=== PATIENT | male | born 1945 | race Two or more races ===

== ENCOUNTER 2024-06-14 14:14 | Inpatient (IN) | payer MEDICAID, SELFPAY ==
[2024-06-14] VITALS (9 sets, daily range): BP systolic 139–186; BP diastolic 60–81; PULSE 60–79; RESP 16–99; TEMP 36.6–37; O2SAT 96–100; BMI 26.7
--- NOTE | 2024-06-14 | XR_ITS ---
Examinations: MRI Brain without intravenous contrast. MRA brain without intravenous contrast. MRA carotids without intravenous contrast 3-D vascular reconstructions Date and time of exam: June 14, 2024 1712 hrs. Indications: Stroke alert, onset left-sided facial weakness left facial droop difficulty walking today Technique: Multiple axial and sagittal images of the brain have been obtained MRA brain carotid images without contrast obtained, including 3-D postprocessing, vascular maximum intensity projection images Findings: Sellaturc[place] is not enlarged. The optic chiasm and infundibular stalk are not remarkable. Prepontine and interpeduncular cisterns are not enlarged. No localized enlargement of the medulla or shai. Fourth ventricle and cerebellar tonsils normal in position. Subacute hemorrhage is not seen. Fourth ventricle is midline. Mass in the cerebellopontine angle region is not evident. 7th and 8th nerve complexes exhibits symmetry. Globes are symmetrical with no retro-orbital mass. Increased white matter signal prominent Diffusion-weighted images demonstrate tiny embolic type foci restricted diffusion right frontal parietal lobe both occipital lobes Mass-effect upon the ventricular system is not identified. MRA carotid images degraded by patient motion. MRA brain images no large vessel occlusions Impression: Tiny embolic type acute infarcts in the right frontal parietal lobe and both occipital lobes
--- NOTE | 2024-06-14 14:19 | XR_ITS ---
Examination: CT brain head without contrast. 2-D sagittal coronal reconstructions Date and time of exam:June 14, 2024 1427 hours INDICATIONS: Stroke alert, onset left facial droop and left-sided body weakness beginning 2 hours ago CTDI: vol (mGy):49.7 DLP: (mGycm):985 Technique: Multiple CT axial sections of the brain have been obtained, 5 mm slice thickness. Contrast has not been administered. 2-D sagittal, coronal reconstructions have been obtained Low dose protocols were performed. One or more of the following dose reduction techniques were used; automated exposure control, adjustment of the mA and/or KV according to patient size, use of iterative reconstruction technique. Findings: No significant ventricular enlargement. 23 mm infarct left posterior parietal lobe, image 17 which may be acute All the cerebellar infarct Intra-axial or extra-axial hemorrhage density is not seen. No mass effect or midline shift Basal cisterns are not remarkable. Fourth ventricle is midline. Cranial vault intact. Impression: Negative for acute hemorrhage, mass effect or midline shift 23 mm nonhemorrhagic infarct left posterior parietal lobe which may be acute, clinical correlation advised Consider brain MRI MRA without contrast follow-up
--- NOTE | 2024-06-14 14:19 | EKG_ITS ---
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
--- NOTE | 2024-06-14 14:19 | XR_ITS ---
Examination: CTA carotids with intravenous contrast CTA brain, head with intravenous contrast. 2-D sagittal, coronal reconstructions. 3-D reconstructions. Exam date and time: June 14, 2024 1439 hours INDICATIONS: Stroke alert, onset left-sided facial droop left-sided arm weakness beginning 2 hours ago CTDI: vol (mGy) 59.7 DLP: (mGycm) 477 Technique: Multiple CTA axial brain, head carotid images post intravenous contrast injection 75 cc, [id number]. 2-D sagittal, coronal reconstructions. 3-D reconstructions, 3-D post processing including vascular maximum intensity projection images. Low dose protocols were performed. One or more of the following dose reduction techniques were used; automated exposure control, adjustment of the mA and/or KV according to patient size, use of iterative reconstruction technique. Findings: Significant calcification both carotid bifurcations 10 to 30% stenosis right carotid bifurcation origin right internal carotid artery 40-60% stenosis left carotid bifurcation origin left internal carotid artery Atretic right vertebral artery No cerebral large vessel occlusions or thrombus IMPRESSION: 10 -30% stenosis right carotid bifurcation origin right internal carotid artery 40-60% stenosis left carotid bifurcation origin left internal carotid artery Very atretic right vertebral artery, recommend carotid Doppler vertebral sonography follow-up to exclude retrograde flow in the right vertebral artery No cerebral large vessel occlusions or thrombus
--- NOTE | 2024-06-14 14:20 | PD.EDADULT ---
ED General RME/HPI General Chief complaint: Neuro Symptoms/Deficit Stated complaint: left facial droop, left arm numb Time Seen by Provider: 06/14/24 14:18 Arrival date/time: 06/14/24 14:14 CC: Left-sided facial droop left-sided upper extremity weakness HPI onset patient states 2 hours ago, family member state last seen normal was 3 to 4 hours ago. Patient is awake alert oriented [place]araguan-speaking only denies any physical pain including chest pain no shortness of breath or difficulty breathing. Family remembers report no prior history of stroke. Second family member arrived at 1530 stating that the patient has had several falls with generalized balance and weakness issues over the past month. Related Data Previous Rx's ?Medication ?Instructions ?Recorded ondansetron 4 mg disintegrating 4 mg PO Q8H PRN nausea and 05/03/23 tablet vomiting #10 tabs tramadol 50 mg tablet 25 mg (1/2 x 50 mg) PO BID PRN 05/03/23 pain #10 tabs tramadol 50 mg tablet 25 mg (1/2 x 50 mg) PO BID PRN 05/03/23 pain #10 tabs Allergies Allergy/AdvReac Type Severity Reaction Status Date / Time No Known Allergies Allergy Verified 06/14/24 14:20 Review of Systems Review of Systems Narrative Review of Systems: GEN: No fever, no chills, no weight loss EYES: No discharge, no visual changes, no pain HEENT: No ear pain, no congestion, no sore throat PULM: No shortness of breath, no cough, no congestion CV: No chest pain, no dyspnea on exertion, no palpitations GI: No nausea, no vomiting, no diarrhea, no pain, no constipation : No frequency, no urgency, no dysuria MUSC/SKEL: No joint pain, no back pain SKIN: No rash PSYCH: No hallucinations, no depression HEME/LYMPH: No easy bleeding or bruising tendencies NEURO: + Left face, left upper extremity weakness, no headache Past Medical History Social History SMOKING STATUS: Never smoker ED Exam Narrative Physical exam: [General: Thin, but not emaciated not in any acute distress Head normocephalic HEENT: Eyes pupils are PERRLA EOMs are intact face, left-sided facial droop. No ptosis. Swallow symmetrical phonation is normal all other subsystems of HEENT are within acceptable limits Neck is supple nontender Chest equal chest rise nontender to palpation Respiratory: Clear to auscultation no wheezes crackles or rubs CV: Rate rhythm is regular no murmurs rubs or clicks Abdomen is distended secondary to body habitus soft nontender no masses positive bowel sounds all 4 quadrants Back: No CVA tenderness no spinous process tenderness from cervical spine thoracic and lumbar spine Skin: Intact no petechiae rash induration ulceration or crepitus Extremities: Left upper extremity weakness currently strength 2/5 with building pressure washer. Moving all other extremities against resistance cap refill less than 2 seconds neurosensory intact Neuro: Awake alert oriented x3 Glascow coma 15 no focal deficits] Course Course Course Narrative: Reported to read at [address] Masters states that there is a nonvisualized V3 and V4 segments in the right vertebral artery region. This was reported to Dr. Lori Rutledge for follow-up. Quality Measures none Orders Category Date Time Status Bedside Blood Glucose NOW Care 06/14/24 14:19 Completed Mechanical Project Manager NOW Care 06/14/24 14:19 Active Continuous Pulse Oximetry NOW Care 06/14/24 14:19 Completed EKG (ED ONLY) *Do not use* NOW Care 06/14/24 14:19 Completed Insert IV NOW Care 06/14/24 14:19 Active MRI Screening NOW Care 06/14/24 15:05 Active NIH Stroke Scale now Care 06/14/24 14:19 Completed NPO NOW Care 06/14/24 14:19 Completed Nurse Swallow Screen x1 Care 06/14/24 14:19 Active Consult to Neurology / Tele-Neurology Routine Cons 06/14/24 14:[address] angio stroke protocol Stat Exams 06/14/24 14:[address] stroke protocol Stat Exams 06/14/24 14:19 Completed EKG (ED Only) Stat Exams 06/14/24 14:19 Draft CBC Stat Lab 06/14/24 14:26 Completed Comprehensive Metabolic Panel Stat Lab 06/14/24 14:26 Completed Drug Screen,Urine Stat Lab 06/14/24 18:50 Completed HCG Titer if Positive Stat Lab 06/14/24 14:26 Completed Magnesium Stat Lab 06/14/24 14:26 Completed Partial Thromboplastin Time Stat Lab 06/14/24 14:26 Completed Prothrombin Time with INR Stat Lab 06/14/24 14:26 Completed Troponin I Stat Lab 06/14/24 14:26 Completed Urinalysis Stat Lab 06/14/24 18:50 Completed Urine Culture Stat Lab 06/14/24 18:50 Received Aspirin Med 06/14/24 15:04 Discontinued 325 mg PO X1 ONE Ondansetron Inj [Zofran Inj] Med 06/14/24 14:19 Active 4 mg IV Q4HR PRN Oxygen Delivery NOW RT 06/14/24 14:19 Active Vital Signs Vital signs: Vital Signs Temperature 98.0 F 06/14/24 14:40 Pulse Rate 74 06/14/24 14:40 Respiratory Rate 18 06/14/24 14:40 Blood Pressure 139/62 H 06/14/24 14:40 Pulse Oximetry (%) 98 06/14/24 14:40 Oxygen Delivery Method Room Air 06/14/24 14:40 [facility] Patient data External records reviewed:: [facility] previous records Clinical information provided by:: patient and family Social determinants that could affect healthcare access:: none Patient has the following chronic illnesses:: None How is presenting disease/condition affected by chronic disease/condition?: uneffected by Evaluation data The following diagnostics were reviewed and interpreted by me:: lab results, radiology exam(s) and EKG tracing(s) Lab and/or radiology exams considered but not ordered:: CBC shows no acute leukocytosis there is not mild anemia 12 and 40 no old labs for comparison, no thrombocytopenia Coags within acceptable limits CMP shows no electrolyte imbalances renal impairment transaminitis or T. bili elevation CT of the head is interpreted by me read by radiology shows a 2023 mm nonhemorrhagic infarct left posterior parietal lobe CTA of the brain as interpreted by radiology shows 10 to 30% distal stenosis of the right carotid bifurcation 4060% stenosis of the left carotid bifurcation also at a very atretic right vertebral artery no LVO's. EKG performed at 1528 shows ventricular rate of 63P interval 159 QRS of 9 3 QTc of 430 this is sinus rhythm occasional PVC. Interpretation Summary: NIH score of 5 Medications Medications considered but not ordered:: None Medication administrations:: Medication Administration History Acetaminophen (Acetaminophen 325 Mg Tablet) 650 mg PO Q6H PRN PRN Reason: Fever >100.3 or pain Stop: 07/14/24 16:35 Atorvastatin Calcium (Atorvastatin Calcium 20 Mg Tablet) 40 mg PO HS VICTORIANO Stop: 07/14/24 20:59 Last Admin: 06/14/24 20:13 Dose: 40 mg Documented By: FC Dextrose (Dextrose 50%-Water Inj 50 Ml Syringe) 25 ml IV Q15MIN PRN PRN Reason: BG 50-70 responsive npo pt Stop: 07/14/24 16:42 Dextrose (Dextrose 50%-Water Inj 50 Ml Syringe) 50 ml IV Q15MIN PRN PRN Reason: BG <50 OR BG <70 & pt unresponsive Stop: 07/14/24 16:42 Glucagon (Glucagon Inj 1 Mg Vial) 1 mg IM Q15MIN PRN PRN Reason: BG <70, and no IV access Insulin Human Lispro (Insulin Lispro (Admelog) 1 Unit/0.01 Ml Unit) 0 unit SC [facility]; Protocol Stop: 07/14/24 17:44 Last Admin: 06/14/24 18:03 Dose: Not Given Documented By: Non-Admin Reason: Contraindicated Labetalol HCl (Labetalol Inj 5 Mg/Ml Vial 20 Ml) 10 mg IVP Q4HR PRN PRN Reason: if SBP>220 or DBP>120 Stop: 07/14/24 17:46 Ondansetron HCl (Ondansetron Inj 2 Mg/Ml Inj 2 Ml) 4 mg IV Q4HR PRN PRN Reason: NAUSEA OR VOMITING Stop: 07/14/24 14:18 Discontinued Medications Aspirin (Aspirin 325 Mg Tablet) 325 mg PO X1 ONE Stop: 06/14/24 15:05 Last Admin: 06/14/24 15:16 Dose: 325 mg Documented By: Aspirin (Aspirin Ec 81 Mg Tabec) 81 mg PO X1 ONE Stop: 06/14/24 18:28 Last Admin: 06/14/24 20:12 Dose: Not Given Documented By: FC Non-Admin Reason: Discontinued Aspirin (Aspirin Ec 81 Mg Tabec) 81 mg PO QDAY [facility] Stop: 07/15/24 08:59 Aspirin (Aspirin Ec 81 Mg Tabec) 81 mg PO QDAY [facility] Stop: 07/15/24 08:59 Sodium Chloride (Ns) 1,000 mls @ 80 mls/hr IV .[id number] [facility] Stop: 06/15/24 06:16 Last Admin: 06/14/24 18:03 Dose: 80 mls/hr Documented By: Insulin Human Lispro (Insulin Lispro (Admelog) 1 Unit/0.01 Ml Unit) 0 unit SC ACHS [facility]; Protocol Stop: 07/14/24 16:59 Last Admin: 06/14/24 18:04 Dose: Not Given Documented By: GM Non-Admin Reason: Discontinued Labetalol HCl (Labetalol Inj 5 Mg/Ml Vial 20 Ml) 10 mg IVP X1 PRN PRN Reason: if SBP>220 or DBP>120 Stop: 07/14/24 17:46 None Consultations Consultation(s) initiated? (list below): No Consultation #1 (Physician, Specialty, Details): Teleneurology Time: 15:04 Consultation #2 (Physician, Specialty, Details): Teleneurologist states there was a question as to when the last normal time was is estimated to be at 10 AM which is approximately 5+ hours ago. This time note tPA secondary to the delayed window. Patient will be put on aspirin and admitted for stroke workup. Diagnosis Differential Diagnosis ED Complaint MDM: Ischemic stroke, intracerebral hemorrhage, hemorrhagic stroke Most likely diagnosis given after review of the tests above:: Ischemic stroke Admission Indicated Admission indicated?: indicated Explain why admission is indicated or not indicated:: Further medical management Admission Request Was there a request for admission?: No Disposition Plan Disposition Plan: Admit Medical Decision Making Differential Diagnosis Differential Diagnosis: Ischemic stroke, intracerebral hemorrhage, hemorrhagic stroke Lab Data 06/14/24 14:26 06/14/24 14:26 Labs: Lab Results 06/14/24 Range/Units 14:26 WBC 7.7 (3.8-10.6) Thou/mm3 RBC 4.70 (4.50-5.90) Miln/mm3 Hgb 12.9 L (13.5-16.0) g/dL Hct 40.7 L (41.0-53.0) % MCV 87 (80-100) fL MCH 27.4 (25.0-35.0) pg MCHC 31.7 (31.0-37.0) g/dl RDW Std Deviation 47.6 H (35.1-43.9) fL Plt Count 213 (140-440) Thou/mm3 Neut % (Auto) 71 (37-80) % Lymph % (Auto) 20 (10-50) % [place] % (Auto) 9 (0-12) % Eos % (Auto) 0 (0-10) % Baso % (Auto) 0 (0-2.5) % Neut # (Auto) 5.5 (1.8-7.7) Thou/mm3 Lymph # (Auto) 1.5 (1.0-4.8) Thou/mm3 [place] # (Auto) 0.7 (0.0-0.8) Thou/mm3 Eos # (Auto) 0.0 (0.0-0.5) Thou/mm3 Baso # (Auto) 0.0 (0.0-0.2) Thou/mm3 Immature Gran # (Auto) 0.01 H (0.00-0.00) Thou/mm3 Absolute Nucleated RBC 0.00 (0.00-0.00) Thou/mm3 Immature Gran % 0 (0-0) % Nucleated RBC % 0 (0) /100 WBC PT 11.3 (9.0-12.2) Seconds INR 1.0 (0.9-1.3) APTT 27.3 (22.0-36.0) Seconds Sodium 138 (136-145) mMol/L Potassium 3.9 (3.4-5.1) mMol/L Chloride 103 (98-107) mMol/L Carbon Dioxide 27.2 (20.0-31.0) mMol/L Anion Gap 8 (7-16) BUN 18 (9-23) mg/dL Creatinine 1.0 (0.6-1.3) mg/dL Estim Creat Clear Calc Not Performed. eGFR > 60 (60 - ) See Note BUN/Creatinine Ratio 18 (12-20) Ratio Glucose 91 (74-106) mg/dL Calculated Osmolality 277 (275-295) Calcium 9.7 (8.3-10.6) mg/dL Corrected Calcium 9.7 (8.5-10.1) mg/dL Magnesium 1.8 (1.6-2.6) mg/dL Total Bilirubin 0.5 (0.3-1.2) mg/dL AST 18 (0-34) U/L ALT 12 (10-49) U/L Alkaline Phosphatase 87 (46-116) U/L Troponin I < 0.020 (0.0-0.045) ng/mL Total Protein 7.6 (5.7-8.2) gm/dL Albumin 4.9 H (3.4-4.8) gm/dL Globulin 2.7 (2.3-3.5) gm/dL Albumin/Globulin Ratio 1.8 (1.2-2.2) HCG (Qual) Negative Discharge Plan Plan Patient Disposition: Other Care w/in Hosp (SDC/CASH) Patient condition on transfer: Stable Problem List Clinical Impression: Cerebrovascular accident PA/SORTER LUMBER STRAIGHTENER Supervising Physician PA/SORTER LUMBER STRAIGHTENER Supervising Physician: Britton Bryant ENP
[2024-06-14 14:38] LABS: Basophils % (Auto) 0 % (0-2.5); Eosinophils % (Auto) 0 % (0-10); Hematocrit 40.7 % (41.0-53.0); Hemoglobin 12.9 g/dL (13.5-16.0); Immature Granulocytes % (Auto) 0 % (0-0); Immature Granulocytes Auto 0.01 Thou/mm3 (0.00-0.00); Lymphocytes # (Auto) 1.5 Thou/mm3 (1.0-4.8); Lymphocytes % (Auto) 20 % (10-50); Mean Corpuscular HGB Conc 31.7 g/dl (31.0-37.0); Mean Corpuscular Hemoglobin 27.4 pg (25.0-35.0); Mean Corpuscular Volume 87 fL (80-100); Monocytes # (Auto) 0.7 Thou/mm3 (0.0-0.8); Monocytes % (Auto) 9 % (0-12); Neutrophils # (Auto) 5.5 Thou/mm3 (1.8-7.7); Neutrophils % (Auto) 71 % (37-80); Nucleated Red Blood Cell % 0 /100 WBC (0); Platelet Count 213 Thou/mm3 (140-440); RDW Standard Deviation 47.6 fL (35.1-43.9); White Blood Count 7.7 Thou/mm3 (3.8-10.6)
[2024-06-14 14:49] LABS: Partial Thromboplastin Time 27.3 Seconds (22.0-36.0); Prothrombin Time 11.3 Seconds (9.0-12.2)
[2024-06-14 14:51] LABS: Alanine Aminotransferase 12 U/L (10-49); Albumin, Serum 4.9 gm/dL (3.4-4.8); Albumin/Globulin Ratio 1.8 (1.2-2.2); Alkaline Phosphatase 87 U/L (46-116); Anion Gap 8 (7-16); Aspartate Amino Transferase 18 U/L (0-34); BUN/Creatinine Ratio 18 Ratio (12-20); Bilirubin,Total 0.5 mg/dL (0.3-1.2); Blood Urea Nitrogen 18 mg/dL (9-23); Calcium 9.7 mg/dL (8.3-10.6); Calcium (Corrected) 9.7 mg/dL (8.5-10.1); Carbon Dioxide 27.2 mMol/L (20.0-31.0); Chloride 103 mMol/L (98-107); Globulin 2.7 gm/dL (2.3-3.5); Glucose 91 mg/dL (74-106); Magnesium 1.8 mg/dL (1.6-2.6); Osmolality,Calculated 277 (275-295); Potassium 3.9 mMol/L (3.4-5.1); Sodium 138 mMol/L (136-145); Total Protein 7.6 gm/dL (5.7-8.2); Troponin I < 0.020 ng/mL (0.0-0.045); eGFR > 60 See Note
[2024-06-14 14:53] LABS: HCG Titer if Positive Negative
--- NOTE | 2024-06-14 15:10 | PC.NURSE ---
Dr. Lee , telenurologist, assessing pt at this time. Per Dr. Lee, pt not a candidate for TNK at this time. It's determined that pt's last known well is at 1000 today & out of the window.
--- NOTE | 2024-06-14 15:10 | PD.TNEURO ---
Tele Neuro Consultation Consultation Date 06/14/24 Most Recent Vital Signs Last Vital Signs Temp 98.0 F 06/14/24 14:40 Pulse 67 06/14/24 14:40 Resp 18 06/14/24 14:40 BP 139/62 H 06/14/24 14:40 Pulse Ox 98 06/14/24 14:40 O2 Del Method Room Air 06/14/24 14:40 Laboratory-Coagulation Panel PT 11.3 Seconds (9.0-12.2) 06/14/24 14:26 INR 1.0 (0.9-1.3) 06/14/24 14:26 APTT 27.3 Seconds (22.0-36.0) 06/14/24 14:26 Consultation Narrative [facility] Tele[facility]urology Consult [facility] Patient Name:???Sam Paz Date of :???1945 Identification Number:??? Date of Service:???06/14/2024 14:18:19 Diagnosis:?I63.89 - Cerebrovascular accident (CVA) due to other mechanism ([facility]) Impression: ?Acute onset of left-sided weakness involving the upper extremity, face and dysarthria, unfortunately last well-known time outside IV thrombolytic window. Head CT shows left parietal infarct which is most likely chronic. CTA does not reveal any large vessel occlusion. No acute stroke intervention. ?Start aspirin 81 mg. Allow permissive hypertension up to a systolic of 220. Complete stroke workup. Our recommendations are outlined below. Recommendations: ? Stroke/Telemetry Floor ? Neuro Checks ? Bedside Swallow Eval ? DVT Prophylaxis ? IV Fluids, Normal Saline ? Head of Bed 30 Degrees ? Euglycemia and Avoid Hyperthermia (PRN Acetaminophen) ? Initiate or continue Aspirin 81 MG daily ? Antihypertensives PRN if Blood pressure is greater than 220/120 or there is a concern for End organ damage/contraindications for permissive HTN. If blood pressure is greater than 220/120 give labetalol PO or IV or Vasotec IV with a goal of 15% reduction in BP during the first 24 hours. Sign Out: ? Discussed with Emergency Department Provider Advanced Imaging:CTA Head and Neck Completed. LVO:No Patient in not a candidate for OLGA Metrics: Last Known Well: 06/14/2024 10:00:00 Dispatch Time: 06/14/2024 14:18:19 Arrival Time: 06/14/2024 14:18:54 Initial Response Time: 06/14/2024 14:19:53Symptoms: Left sided facial droop, left arm. Initial patient interaction: 06/14/2024 14:44:24 NIHSS Assessment Completed: 06/14/2024 14:56:33Patient is not a candidate for Thrombolytic. Thrombolytic Medical Decision: 06/14/2024 15:00:37Patient was not deemed candidate for Thrombolytic because of following reasons: LKW outside 4.5 hr window. . I personally Reviewed the CT Head and it Showed no acute changes Primary Provider Notified of Diagnostic Impression and Management Plan on: 06/14/2024 15:03:40 History of Present Illness:Patient is a 78 year old Male. Patient was brought by private transportation with symptoms of Left sided facial droop, left arm. Patient is a 78-year-old Nepalese-speaking male with a past medical history significant for hypertension, diabetes is being evaluated for concerns of left-sided facial droop/left arm numbness. Son who is at bedside translates for the patient. As per the patient he was eating lunch at 10 AM this morning and he was seemingly normal. 11 AM when he tried to go take a shower he removed his shirt and at that time he noticed that his left arm was feeling numb. He is also saying that his left arm is feeling weaker. Son states that there is some mild left-sided facial droop and the speech is slurred. Son immediately brought him to the hospital and on the car ride he noticed that his father was slurring more more. Patient is not on any blood thinners as per the son. He does not have any bleeding issues as per the son. ? Past Medical History: ?Hypertension ?Diabetes Mellitus ?There is no history of Hyperlipidemia ?There is no history of Coronary Artery Disease Other PMH:? GERD Medications: No Anticoagulant use? No Antiplatelet use Reviewed EMR for current medications Allergies:? Description:?As per chart Social History: Smoking: No Alcohol Use: No Drug Use: No Family History: There is no family history of premature cerebrovascular disease pertinent to this consultation ROS : 14 Points Review of Systems was performed and was negative except mentioned in HPI. Past Surgical History: There Is No Surgical History Contributory To Today?s Visit ? Examination: BP(139/62),?Pulse(65),?Blood Glucose(105) 1A: Level of Consciousness - Alert; keenly responsive?+ 0 1B: Ask Month and Age - Both Questions Right?+ 0 1C: Blink Eyes & Squeeze Hands - Performs Both Tasks?+ 0 2: Test Horizontal Extraocular Movements - Normal?+ 0 3: Test Visual Young - No Visual Loss?+ 0 4: Test Facial Palsy (Use Grimace if Obtunded) - Normal symmetry?+ 0 5A: Test Left Arm Motor Drift - Drift, but doesn't hit bed?+ 1 5B: Test Right Arm Motor Drift - No Drift for 10 Seconds?+ 0 6A: Test Left Leg Motor Drift - Drift, but doesn't hit bed?+ 1 6B: Test Right Leg Motor Drift - Drift, but doesn't hit bed?+ 1 7: Test Limb Ataxia (FNF/Heel-Boland) - No Ataxia?+ 0 8: Test Sensation - Mild-Moderate Loss: Less Sharp/More Dull?+ 1 9: Test Language/Aphasia - Normal; No aphasia?+ 0 10: Test Dysarthria - Mild-Moderate Dysarthria: Slurring but can be understood?+ 1 11: Test Extinction/Inattention - No abnormality?+ 0 NIHSS Score:?5 Pre-Morbid Modified [place] Scale:3 Points = Moderate disability; requiring some help, but able to walk without assistance Spoke with :?ED Provider This consult was conducted in real time using interactive audio and video technology. Patient was informed of the technology being used for this visit and agreed to proceed. Patient located in hospital and provider located at home/office setting. Patient is being evaluated for possible acute neurologic impairment and high probability of imminent or life-threatening deterioration. I spent total of 45 minutes providing care to this patient, including time for face to face visit via telemedicine, review of medical records, imaging studies and discussion of findings with providers, the patient and/or family. Dr Aidan Lee [facility] For Inpatient follow-up with [facility] physician please call [facility] at . As we are not an outpatient service for any post hospital discharge needs please contact the hospital for assistance. If you have any questions for the [facility] physicians or need to reconsult for clinical or diagnostic changes please contact us via [facility] at . ?
[2024-06-14] MEDS: Aspirin 325 MG TABLET PO (15:16)
--- NOTE | 2024-06-14 16:26 | ESHP_ITS ---
<Statement entered by Laz Juan DO - 06/14/24 21:01> Senior attestation: Patient was examined and case was reviewed with team including attending physician. Note reviewed, I agree with most of its contents and agree with the patient's care. In summary patient is an 78 year old male with history of T2DM, htn, hld, arthritis, and possible PAD with stent placement who presented to the ED with concerns of left arm weakness and left facial droop, was found to have 23 mm non-hemorrhagic infarct on posterior parietal lobe with stenosis of right and left bifurcations of right and left carotid arteries. Patient was evaluated by tele-neurology team, who advised further investigation of possible CVA vs TIA. Patient will be admitted to telemetry for TIA vs CVA workup, will order head/brain MRI, neurology consultation, and echo with bubble study. Will add IV labetalol for systolic BP > 220 or diastolic BP > 120, physical therapy and speech therapy referrals ordered. Will start aspirin, statin, and insulin sliding scale for patient's history of T2DM. Laz Juan DO PGY-3 Documentation for date of: 06/14/24 HPI History of Present Illness Chief complaint: left arm weakness History of present illness: Sam Paz is 78 yr male with PMH of hypercholesterolemia, [id number] type 2 diabetes, hypertension, arthritis, previous stroke over 10 years ago, ?PAD w/stent presented to ED today after experiencing left hand and arm weakness. Patient stated that he was at home when attempting to take a shower and was not not able to turn on the shower or dress himself due to the weakness. Patient lives at home with who had noticed left-sided facial drooping but no altered speech. Patient's niece was at bedside and stated that he has a history of multiple falls. Apparently patient has a shuffling gait and not able to lift up feet properly with frequent tripping with last fall being 2 weeks ago. Some falls have been causing open lacerations and periorbital bruising. Patient endorses episodes of dizziness but denies any headache, dysphagia, altered vision. He is compliant with medication however does not check blood pressure or blood sugars at home regularly. Denies any abdominal discomfort, dysuria, polyphagia. In ED, vitals unremarkable. CBC unremarkable. CMP revealed sodium 138, potassium 3.9, creatinine 1.0, glucose 91. Troponins were negative. EKG had no ischemic changes. Diagnostic imaging: Head CT negative negative for acute hemorrhage, nonhemorrhagic infarct in left parietal lobe may be chronic. CTA head/neck showed 10-30% stenosis of right carotid bifurcation, 40-60% stenosis left carotid artery bifurcation. Very atretic right vertebral artery with no large vessel occlusion. Teleneuro was consulted and patient not candidate for thrombolytics. NIHSS score of 5. Started on aspirin 81 mg. Patient admitted for CVA workup. PMH: as noted above PSH: b/L eye lens replacement (many years ago--can't recall), possible stent in LE FamHx: HTN, HLD, DM, stroke Social: denies smoking or drinking, lives at home with Review of Systems Review of Systems Systems Reviewed: All systems reviewed, normal except as documented Exam Vital Signs Temp Pulse Resp BP Pulse Ox O2 Del Method 98.2 F 76 19 149/81 H 100 Room Air 06/14/24 15:32 06/14/24 15:32 06/14/24 15:32 06/14/24 15:32 06/14/24 15:32 06/14/24 15:32 Narrative Exam General: Alert and oriented x3. No acute distress, cooperative Eyes: Pupils are equal and reactive to light bilaterally HEENT: Atraumatic, normocephalic. No JVD noted. Mucosa moist. Cardiovascular: Normal S1 and S2. Regular rate and rhythm. No pitting edema Respiratory: Lungs are clear to auscultation bilaterally. No wheezing or crackles heard. Abdomen: Soft, nontender, not distended, normal bowel sounds. Skin: Warm to touch, dry, no rashes noted Musculoskeletal: No gross injuries. Able to move all 4 extremities. 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 Psych: Normal affect and mood Results: Labs 06/15/24 04:40 06/15/24 04:40 Labs: Short CBC 06/14/24 Range/Units 14:26 WBC 7.7 (3.8-10.6) Thou/mm3 Hgb 12.9 L (13.5-16.0) g/dL Hct 40.7 L (41.0-53.0) % Plt Count 213 (140-440) Thou/mm3 BMP 06/14/24 14:26 Sodium 138 Potassium 3.9 Chloride 103 Carbon Dioxide 27.2 BUN 18 Creatinine 1.0 Glucose 91 Calcium 9.7 Cardiac Enzymes 06/14/24 Range/Units 14:26 Troponin I < 0.020 (0.0-0.045) ng/mL Liver Function 06/14/24 Range/Units 14:26 Total Bilirubin 0.5 (0.3-1.2) mg/dL AST 18 (0-34) U/L ALT 12 (10-49) U/L Alkaline Phosphatase 87 (46-116) U/L Albumin 4.9 H (3.4-4.8) gm/dL Quality Measures Quality Measures VTE prophylaxis Advance care planning discussed with:: patient Medications Home Medications and Allergies Home Medications ?Medication ?Instructions ?Recorded ?Confirmed ?Type atorvastatin 40 mg tablet 40 mg PO QDAY 06/15/24 06/15/24 History hydrochlorothiazide 12.5 mg tablet 12.5 mg PO QAM 06/15/24 06/15/24 History meloxicam 7.5 mg tablet 7.5 mg PO QDAY 06/15/24 06/15/24 History metformin 850 mg tablet 850 mg PO BID 06/15/24 06/15/24 History metoprolol tartrate 50 mg tablet 50 mg PO QDAY 06/15/24 06/15/24 History Allergies Allergy/AdvReac Type Severity Reaction Status Date / Time No Known Allergies Allergy Verified 06/14/24 14:20 Visit Medications Ondansetron HCl (Ondansetron Inj 2 Mg/Ml Inj 2 Ml) 4 mg IV Q4HR PRN PRN Reason: NAUSEA OR VOMITING Stop: 07/14/24 14:18 Discontinued Medications Aspirin (Aspirin 325 Mg Tablet) 325 mg PO X1 ONE Stop: 06/14/24 15:05 Last Admin: 06/14/24 15:16 Dose: 325 mg Assessment & Plan Plan Sam Paz is 78 yr male with PMH of hypercholesterolemia, hlx-ukkyyxg-jqarsoplv type 2 diabetes, hypertension, arthritis, previous stroke over 10 years ago, ?PAD w/stent presented to ED today after experiencing left hand and arm weakness. Patient stated that he was at home when attempting to take a shower and was not not able to turn on the shower or dress himself due to the weakness. Also has hx of multiple falls. No slurred speech, no neuro focal deficits, noticeable left-sided facial droop and loss of nasolabial fold. Patient admitted for workup of TIA. #TIA Patient presented with left sided upper extremity weakness and left facial droop. No slurred speech, no focal neurodeficits. Teleneuro was consulted. NIHSS score 5, patient not candidate for thrombolytics. Head CT negative negative for acute hemorrhage, nonhemorrhagic infarct in left parietal lobe may be chronic. CTA head/neck showed 10-30% stenosis of right carotid bifurcation, 40-60% stenosis left carotid artery bifurcation. Very atretic right vertebral artery with no large vessel occlusion. ?Dr. Coffman was consulted recommendations pending. ?Start aspirin 81 mg daily ? Carotid Doppler ultrasound pending ? Echo with bubble study pending ? MRI pending ?Physical therapy/speech pathology referral pending ? N.p.o. until patient passes bedside swallow screen ? Head of bed elevation 30 degrees ? Continue permissive hypertension for 24 hours as per neurorecommendations ? 10 mg IV labetalol every 4 hours as needed if BP 220/120 ? Med recs pending--restart atorvastatin 40 mg p.o. daily once passed swallow screen ?Lipid panel pending #Hx HTN #Hx HLD #Hx arthritis -med recs pending #Hx non insulin dependent T2DM On admission initial glucose 91. Last A1c unknown. Patient takes 750mg metformin daily(?) for diabetes at home. 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 Cruz and seniors Dr. Juan/Dr. Thomas. Kelly Sommer, PGY-1 Mr Paz is a gibraltarian speaking 78 year old male with history of T2DM, essential HTN, HLD, osteoarthritis, and possible PAD with stent placement, who presented to the ED with sudden onset left arm and left facial weakness. On work up, he was found to have a 23 mm non-hemorrhagic infarct on posterior parietal lobe on Head CT, and stenosis of right and left bifurcations of right and left carotid arteries on Head CTA. Patient was evaluated by tele-neurology team, who recommended admission for further investigation of possible CVA vs TIA. Brain MRI/MRA was remarkable for acute embolic infarcts and questionable subacute hematoma. A repeat Head CT will be ordered to rule out any hemorrhagic conversion. In house neurologist Dr Coffman is consulted for further evaluation as well. Stroke protocol in place, Dysphagia 2 diet ordered after nurse swallow screen, pending final swallow eval by speech therapist. PT eval ordered. Patient examined and case discussed with the team including attending physician. Note reviewed, I agree with the care plan as documented. - Gergory Thomas MD, PGY 2 Attending Provider Attestation/Addendum I have discussed and was present for the essential components of the history, physical examination, diagnosis, and treatment plan with the resident. I agree with the patient's care as documented by the resident and amended herein by me. Fuentes Cruz DO. Admitted for probable transischemic attack. Neurology consulted. Patient started on aspirin per teleneurology recommendations however held due to concerns of evolving hemorrhagic infarct per preliminary teleneurology read however read from Dr Valadez reading tiny embolic type acute infarct in the right frontal parietal lobe and both occipital lobes. Will repeat CT head in the morning. Usual stroke precautions in place, A1c and lipid panel ordered. Will continue to monitor closely Although this document has been carefully reviewed, there may still be some phonetic and other typographical errors. These errors are purely grammatical due to imperfections in the software program and should not be construed in any way to compromise the substance of the patient's medical care during this visit.
--- NOTE | 2024-06-14 16:40 | ECHO_ITS ---
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 16 - 28 cm?/m? Ascending Aorta Diameter 2.7 cm M-MODE Aortic Root Diameter MM 3.2 cm LA Systolic Diameter MM 4.7 cm LA Ao Ratio MM 1.5 AV Cusp Separation MM 1.4 cm DOPPLER AV Peak Velocity 247.5 cm/s AV Peak Gradient 24.5 mmHg AV Mean Gradient 12.0 mmHg AV Velocity Time Integral 52.0 cm AI Peak Velocity 432.0 cm/s AI Peak Gradient 74.6 mmHg AI Pressure Half Time 378.0 ms LVOT Peak Velocity 116.0 cm/s LVOT Peak Gradient 5.4 mmHg LVOT Velocity Time Integral 24.0 cm LVOT Cardiac Index 2665.3 cm?/min?m? AV Area Cont Eq vti 1.3 cm? AV Area Cont Eq pk 1.3 cm? MV Peak Velocity 133.0 cm/s MV Peak Gradient 7.1 mmHg MV Mean Velocity 63.8 cm/s MV Mean Gradient 2.0 mmHg MV Area PHT 2.5 cm? MR Peak Velocity 521.0 cm/s MR Peak Gradient 108.6 mmHg Mitral E Point Velocity 129.0 cm/s Mitral A Point Velocity 98.0 cm/s Mitral E to A Ratio 1.3 LV E' Lateral Velocity 6.4 cm/s Mitral E to LV E' Lateral Ratio 20.1 LV E' Septal Velocity 4.7 cm/s Mitral E to LV E' Septal Ratio 27.6 TR Peak Velocity 235.0 cm/s TR Peak Gradient 22.1 mmHg FINDINGS Left Ventricle Normal left ventricular size, systolic function with no obvious regional wall motion abnormalities. Mild LVH. The ejection fraction is visually estimated at 50-55%. Right Ventricle The right ventricle is normal in size and systolic function. The estimated right ventricular systoli c pressure, 32mmHg. RAP 10. Left Atrium The left atrium is severely dilated. Right Atrium The right atrium is severely dilated. Atrial Septum The interatrial septum appears normal with no evidence of a shunt. Aorta The aorta is normal by two-dimensional, color flow and Doppler interrogation. Mitral Valve The mitral valve is mildly MAC. There is mild to moderate mitral valve regurgitation. Aortic Valve The aortic valve is trileaflet. Mild stenosis, mean gradient 13mmHg, vmax 2.6m/s There is mild to mo derate aortic valve regurgitation. Tricuspid Valve The tricuspid valve is normal by two-dimensional, color flow and Doppler interrogation. There is mil d tricuspid valve regurgitation. Pulmonic Valve There is no significant pulmonic valve regurgitation. Vessels The pulmonary artery appears normal. The inferior vena cava pulmonary and hepatic veins appear yesenia l. Pericardium The pericardium is normal by two-dimensional imaging. There is no significant pericardial effusion. CONCLUSIONS Negative bubble study. No evidence of PFO or ASD. Normal LV size and function. Mild LVH. Estimated EF 50-55% Normal RV size and function Severe biatrial dilatation Mild MAC. Mild to moderate MR Mild AV stenosis, mean gradient 13mmHg, vmax 2.6m/s. Mild to moderate AI. Mild TR. Mirna Antonio (Electronically Signed) Final Date: 15 June 2024 13:02
--- NOTE | 2024-06-14 17:07 | XR_ITS ---
Examination: Carotid arterial duplex scan, ultrasound. Date and time of exam: June 14, 2024 1851 hrs. Indications: Onset left arm pain beginning 11:00 AM this morning Technique: Multiple sonographic images have been obtained of the carotid arteries and vertebral arteries, B-mode/grayscale imaging and Doppler spectral analysis and color flow Peak systolic and diastolic velocities have been recorded. Systolic diastolic ratios have been calculated. Findings: Right peak systolic velocities: Distal internal carotid artery peak systolic velocity is 0.7 M/sec Proximal internal carotid artery peak systolic velocity is 0.9 M/sec Carotid bifurcation peak systolic velocity is 0.4 M/sec External carotid artery peak systolic velocity is 1.2 M/sec . Left peak systolic velocities: Distal internal carotid artery peak systolic velocity is 0.4 M/sec Proximal internal carotid artery peak systolic velocity is 0.6 M/sec Carotid bifurcation peak systolic velocity is 0.5 M/sec External carotid artery peak systolic velocity is 1.0 M/sec Doppler waveform analysis demonstrates no spectral broadening Impression: Right internal carotid artery demonstrates 0-10% stenosis. Left internal carotid artery demonstrates 0-10% stenosis. Vertebral artery flow is not visualized
[2024-06-14] MEDS: SODIUM CHLORIDE 0.9% 1000 ML 1,000 ML 80 ML IV (18:03)
--- NOTE | 2024-06-14 18:11 | PC.NURSE ---
Patient marla in [facility] quietly, no distress noted, patient's son at bedside, patient denies pain, skin warm dry and pink, call light within reach, son at bedside assisting patient with urinal.
--- NOTE | 2024-06-14 18:49 | PRELIM_ITS ---
ORIGINAL REPORTMRI of the brain without intravenous gadolinium. June 14, 2024 1712 hoursClinical history: CVA workup no priors available, Hx- left-sided weakness, difficulty in walking and left faci al droopComparison: No prior study is available for comparison. Findings:There are tiny foci of restr icted diffusion in the left occipital lobe medially, suggestive of acute lacunar infarcts. There is a lso an evolving subacute hemorrhagic infarct in the right occipital lobe medially demonstrating dobbs ing with mild adjacent mass effect. No evidence of midline shift. There are periventricular and subc ortical white matter T2 and FLAIR hyperintensities, suggestive of chronic small vessel ischemia. Old lacunar infarcts are noted in the right basal ganglia and left cerebellum. There is an old infarct w ith encephalomalacia in the right parietal lobe. The hippocampal complexes are symmetric. The ventric les, basal cisterns and sulci are prominent, suggestive of volume loss. Mildly prominent perivascular spaces are seen in bilateral basal ganglia. Normal intracranial flow voids are noted. The calvarium, pituitary fossa and cervicomedullary junction appear unremarkable. Mucosal thickening is seen in the left maxillary sinus, suggestive of chronic sinus disease. The other visualized paranasal sinuses an d mastoid air cells are clear. The seventh and eighth nerve root complexes are normal.Impression:Tiny foci of restricted diffusion in the left occipital lobe medially, suggestive of acute lacunar infarc ts. Evolving subacute hemorrhagic infarct in the right occipital lobe medially with mild adjacent mas s effect. Old infarcts, volume loss and chronic small vessel ischemic changes.Suggest clinical corre lation, comparison with prior studies, follow up or further evaluation as clinically indicated. Repor t on MRAs to follow. Discussion Details: Results verbally communicated to : Dr. Bryant at 06:35 PM Report Electronically Signed By: Claribel Masters 06/14/2024 6:49:31 PM [EST]ADDENDUM REPORTMR ang iogram of the Brain and NeckFindings:Evaluation is limited due to motion artifact. The aortic arch, o rigin of right brachiocephalic, left common carotid, and left subclavian arteries are excluded from t he field of view. Bilateral common carotid arteries to the extent visualized, carotid bulbs and inter nal and external carotid arteries are patent. The origins of the vertebral arteries are unremarkable. The left vertebral artery is dominant. The right vertebral artery is hypoplastic with nonvisualized V3 and V4 segments. The intracranial internal carotid, anterior cerebral and posterior cerebral arter ies are patent. The A1 segment of the left anterior cerebral artery is hypoplastic, a normal variant. Bilateral posterior communicating arteries are seen. There is no evidence of dissection or aneurysm. Impression:Hypoplastic right vertebral artery with nonvisualized V3 and V4 segments. Otherwise patent head and neck arteries to the extent visualized.Suggest clinical correlation, comparison with prior studies, follow up or further evaluation as clinically indicated. Report Electronically Signed By: Claribel Masters 06/14/2024 7:57:12 PM [EST]
[2024-06-14 19:03] LABS: Collection Type, Urine Clean Catch
[2024-06-14 19:12] LABS: Bilirubin,Urine Negative (Negative); Blood,Urine Negative (Negative); Clarity,Urine Clear (Clear/Hazy); Color,Urine Lt-Yellow (Lt Yel-Yel); Glucose, Urine 4+ (Negative); Ketones,Urine Negative (Negative); Leukocyte Esterase,Urine Negative (Negative); Nitrite,Urine Negative (Negative); PH,Urine 6.5 (5.0-7.0); Protein,Urine Negative (Neg - Trace); RBC,Urine 1 /hpf (0-3); Specific Gravity,Urine 1.036 (1.001-1.035); Squamous Epithelial Cell,Urine < 1 /hpf (0-5); Urobilinogen,Urine Negative mg/dL (0.0-1.0); WBC,Urine < 1 /hpf (0-5)
[2024-06-14 19:13] LABS: Amphetamine/Methamp Scrn,U Negative (Negative); Barbiturate Screen,Urine Negative (Negative); Benzodiazepines Screen,Urine Negative (Negative); Benzoylecgonine Screen, Ur Negative (Negative); Fentanyl Screen,Urine Negative (Negative); Opiate Screen,Urine Negative (Negative); THC Screen,Urine Negative (Negative)
[2024-06-14] MEDS: ATORVASTATIN CALCIUM 20 MG TABLET 40 MG PO (20:13)
--- NOTE | 2024-06-14 20:24 | EVENTNT_ITS ---
Documentation for date of: 06/14/24 Event Note Event Note: Event note regarding radiologic findings for patient's MRI. Initially, tele- radiologist read was the following: Tiny foci of restricted diffusion in the left occipital lobe medially, suggestive of acute lacunar infarcts. Evolving subacute hemorrhagic infarct in the right occipital lobe medially with mild adjacent mass effect. Old infarcts, volume loss and chronic small vessel ischemic changes. However, provider added an addendum with the following: Evaluation is limited due to motion artifact. The aortic arch, origin of right brachiocephalic, left common carotid, and left subclavian arteries are excluded from the field of view. Bilateral common carotid arteries to the extent visualized, carotid bulbs and internal and external carotid arteries are patent. The origins of the vertebral arteries are unremarkable. The left vertebral artery is dominant. The right vertebral artery is hypoplastic with nonvisualized V3 and V4 segments. The intracranial internal carotid, anterior cerebral and posterior cerebral arteries are patent. The A1 segment of the left anterior cerebral artery is hypoplastic, a normal variant. Bilateral posterior communicating arteries are seen. There is no evidence of dissection or aneurysm. Impression: Hypoplastic right vertebral artery with nonvisualized V3 and V4 segments. Otherwise patent head and neck arteries to the extent visualized. In-house radiology read of the MRI read as: Tiny embolic type acute infarcts in the right frontal parietal lobe and both occipital lobes and subacute hemorrhage not seen. I spoke with Dr. Valadez about the conflicting reports along with the new addendum provided by the tele-radiologist; per Dr. Valadez he believes the above is an overread, but suggests that a repeat CT Head w/o contrast be ordered to rule out SAH in the AM. Dr. Cruz, admitting attending, was notified of this conversation. Vineet George, PGY-1
[2024-06-15] VITALS (20 sets, daily range): BP systolic 115–162; BP diastolic 45–100; PULSE 58–145; RESP 16–98; TEMP 36.2–37.1; O2SAT 96–99
--- NOTE | 2024-06-15 05:00 | XR_ITS ---
Examination: CT brain head without contrast. 2-D sagittal coronal reconstructions Date and time of exam:June 15, 2024 0527 hrs. Comparison June 14, 2024 1427 hrs. Indications: History nonhemorrhagic infarct left parietal lobe CTDI: vol (mGy):50 DLP: (mGycm):1000 Technique: Multiple CT axial sections of the brain have been obtained, 5 mm slice thickness. Contrast has not been administered. 2-D sagittal, coronal reconstructions have been obtained Low dose protocols were performed. One or more of the following dose reduction techniques were used; automated exposure control, adjustment of the mA and/or KV according to patient size, use of iterative reconstruction technique. Findings: Axial image 24 demonstrates 10 mm hyperdense area consistent with subtle hemorrhage in the right occipital lobe infarct Ventricles are not enlarged No mass effect upon the ventricular system No ventricular hemorrhage Cranial vault intact Impression: Subtle 10 mm hemorrhage in the right occipital infarct described on the brain MRI June 14, 2024
[2024-06-15 05:19] LABS: Basophils % (Auto) 0 % (0-2.5); Eosinophils % (Auto) 0 % (0-10); Hematocrit 38.2 % (41.0-53.0); Hemoglobin 12.2 g/dL (13.5-16.0); Immature Granulocytes % (Auto) 0 % (0-0); Lymphocytes # (Auto) 0.9 Thou/mm3 (1.0-4.8); Lymphocytes % (Auto) 13 % (10-50); Mean Corpuscular HGB Conc 31.9 g/dl (31.0-37.0); Mean Corpuscular Hemoglobin 27.5 pg (25.0-35.0); Mean Corpuscular Volume 86 fL (80-100); Monocytes # (Auto) 0.4 Thou/mm3 (0.0-0.8); Monocytes % (Auto) 6 % (0-12); Neutrophils # (Auto) 5.6 Thou/mm3 (1.8-7.7); Neutrophils % (Auto) 81 % (37-80); Nucleated Red Blood Cell % 0 /100 WBC (0); Platelet Count 198 Thou/mm3 (140-440); RDW Standard Deviation 47.7 fL (35.1-43.9); Red Blood Count 4.43 Miln/mm3 (4.50-5.90)
[2024-06-15 05:38] LABS: Glucose Estimated Average 134 mg/dL (80-131); Hemoglobin A1C 6.3 % Hgb (4.8-6.0)
--- NOTE | 2024-06-15 06:11 | PRELIM_ITS ---
CT scan of the head without intravenous contrast (axial sections with sagittal and coronal reformats) June 15, 2024 at 0527 hoursClinical history: Rule out subarachnoid hemorrhage. Comparison: CT of the head dated June 14, 2024 and MRI of the brain dated June 14, 2024.Findings:Persistent is o-hyperdense structure in the cortical region of the right occipital lobe measuring 9.4 x1.7cm with m ild surrounding edema, may represent subacute parenchymal hematoma. There is no evidence of new intra cranial hemorrhage. No mass effect or midline shift. There are encephalomalacic changes in bilateral parietal lobes, right occipital lobe and right basal ganglia, consistent with chronic infarcts. Ther e are diffuse periventricular white matter hypodensities, compatible with chronic small vessel ischem ia. There is mild to moderate volume loss. The calvarium is unremarkable. Again seen is nearly comple te opacification of the left maxillary sinus with centrally layering hyperdensities, may represent fu ngal sinusitis. The mastoid air cells and the other visualized paranasal sinuses are clear.Impression :Findings suggestive of subacute intraparenchymal hematoma in the right occipital lobe.No evidence of new intracranial hemorrhage. No mass effect or midline shift.Old infarcts, periventricular chronic s mall vessel ischemia and volume loss.Discussion Details: Results verbally communicated to : Dr. Tg valle at 06:02 AM 06/15/2024 Report Electronically Signed By: Claribel Masters 06/15/2024 6:11:02 AM [ES T]
[2024-06-15 06:12] LABS: Alanine Aminotransferase 9 U/L (10-49); Albumin, Serum 4.3 gm/dL (3.4-4.8); Albumin/Globulin Ratio 1.8 (1.2-2.2); Alkaline Phosphatase 80 U/L (46-116); Anion Gap 10 (7-16); Aspartate Amino Transferase 17 U/L (0-34); BUN/Creatinine Ratio 22 Ratio (12-20); Bilirubin,Total 0.5 mg/dL (0.3-1.2); Blood Urea Nitrogen 20 mg/dL (9-23); Calcium 9.2 mg/dL (8.3-10.6); Calcium (Corrected) 9.2 mg/dL (8.5-10.1); Carbon Dioxide 24.8 mMol/L (20.0-31.0); Cardiac Risk Estimate 2.5 RATIO (4.0-6.7); Chloride 105 mMol/L (98-107); Cholesterol 131 mg/dL (132-200); Creatinine (Component) 0.9 mg/dL (0.6-1.3); Globulin 2.4 gm/dL (2.3-3.5); Glucose 112 mg/dL (74-106); HDL Cholesterol 52 mg/dL (40-60); LDL Cholesterol,Calculated 65 mg/dL (0-130); Magnesium 1.8 mg/dL (1.6-2.6); Osmolality,Calculated 283 (275-295); Phosphorous 3.8 mg/dL (2.4-5.1); Potassium 3.8 mMol/L (3.4-5.1); Sodium 140 mMol/L (136-145); Thyroid Stimulating Hormone 0.33 uIU/mL (0.55-4.78); Total Protein 6.7 gm/dL (5.7-8.2); Triglycerides 72 mg/dL (30-150); eGFR > 60 See Note
--- NOTE | 2024-06-15 06:28 | PC.NURSE ---
Pt awake. family at bedside. Director Drug changes. pt conversing normaly and has no obvious deficit.
--- NOTE | 2024-06-15 07:20 | PC.NURSE ---
REPORT RECEIVED, PATIENT ALERT AND ORIENTED, DENIES COMPLAINT OF PAIN AT TIME OF ASSESSMENT. FAMILY AT BEDSIDE.
[2024-06-15] MEDS: INSULIN LISPRO (AdmeLOG) 1 UNIT/0.01 ML UNIT SC ×2 (07:57→17:36)
--- NOTE | 2024-06-15 09:18 | PCS.ST ---
STOCK MIXER seen pt in the ED. pt A&O X4. Recommend continue current diet of D2/THIN. See report for additional details.
--- NOTE | 2024-06-15 11:06 | PC.NURSE ---
ADMITTING DOCTOR CONTACTED DUE TO PATIENT IN A-FIB. STAT EKG ORDERED, PENDING MEDICATION ORDERS.
[2024-06-15] MEDS: POTASSIUM CHLORIDE 20 mEq TABCR 40 MEQ PO (11:39)
[2024-06-15] MEDS: AMIODARONE 150 MG IVPB 150 MG/100 ML BAG 600 MG IV (11:47)
[2024-06-15] MEDS: AMIODARONE 360 MG IVPB 360 MG/200 ML BAG 33.333 MG IV (12:01)
[2024-06-15] MEDS: DILTIAZEM INJ 5 MG/ML VIAL 5 ML 20 MG IV (12:17)
[2024-06-15] MEDS: Magnesium Sulfate 2 GM Ivpb 2 GM/50 ML BAG IV (12:20)
--- NOTE | 2024-06-15 14:27 | ESCONSULT_ITS ---
<Statement entered by Lizett Wilson MD - 06/16/24 19:17> The patient personally examined by me in the emergency room as well as upstairs patient's admit the hospital multiple problems including A-fib RVR as a question of bleeding recommend to continue present medications A-fib appears to be back in normal sinus rhythm now anticoagulation with left ear neurologist if there is no bleeding contraindication should be treated with anticoagulation for now has been held because of question of intracranial bleeding. Agree with the treatment plan recommendation as documented by Dr. Ramos PGY2 HPI Data of Consult Requesting Physician: Aureliano Cruz DO Admitting Provider: Aureliano Cruz DO Attending Provider: Aureliano Cruz DO Primary Care Provider: Physician No Primary/Family Consult Narrative History of present illness: 78 years old male patient with significant medical history for, NIDDM2, HLD, HTN and previous history of stroke (10 years ago), was admitted for left side weakness and left side facial droop. At baseline patient has shuffling gait which has caused multiple falls. Patient also endorsing intermittent vision changes, dysphagia and dizziness. He denied chest pain/pressure, fever, chills, NVD or other associated symptoms. Admission vitals were unremarkable, labs showed Na 138, K 3.9, glucose 91, negative trops. EKG was unremarkable. Head CT indicated 23 mm nonhemorrhagic infarct left posterior parietal lobe which may be acute nonhemorrhagic. CTA head/neck showed 10-30% stenosis of right carotid bifurcation, 40-60% stenosis left carotid artery bifurcation. Very atretic right vertebral artery with no large vessel occlusion. Repeat head CT reading indicated: Subtle 10 mm hemorrhage in the right occipital infarct described on the brain. Carotid Doppler was negative. NIHSS score was averaged to be 5 per [employer]. Patient was admitted for further CVA vs TIA workup. In morning, patient was found to have atrial fibrillation with RVR rate in the 130?s. Cardiology was thus consulted. Medical Hx: HTN, HLD, DM2, previous stroke Medications: atorvastatin 40 mg, HCTZ 12.5 mg, metformin 850 mg, metoprolol tartrate 50 mg Surgical Hx: b/l eye surgery Social Hx: denied? smoking, denied drinking alcohol or using other illicit drugs, lives with Allergies: NKDA Code Status: Full Code 06/15/24: Administer diltiazam 20 mg x1 IVP, load with amiodarone, start amiodarone ggt. Given the head imaging and possibility of hemorrhage, we can not start patient on anticoagulation. Decision to start depends on neurologist review of head CT and or MRI. Echocardiogram indicated: Negative bubble study. No evidence of PFO or ASD. Normal LV size and function. Mild LVH. Estimated EF 50-55%. Normal RV size and function. Severe biatrial dilatation. Mild MAC. Mild to moderate MR. Mild AV stenosis, mean gradient 13mmHg, vmax 2.6m/s. Mild to moderate AI. Mild TR. cc:: cc: Aureliano Cruz DO Review of Systems Review of Systems Systems Reviewed: All systems reviewed, normal except as documented Exam Vital Signs Temp Pulse Resp BP Pulse Ox O2 Del Method 98.8 F 141 H 21 H 149/100 H 97 Room Air 06/15/24 14:04 06/15/24 14:04 06/15/24 14:04 06/15/24 14:04 06/15/24 14:04 06/15/24 14:04 Narrative Exam Constitutional: well-developed, well-nourished, in no acute distress, lying in bed HEENT: NCAT, EOMI, reactive round pupils b/l, patent nares b/l, moist mucous membranes Lung: CTAB, no wheezing, no rhonchi Heart: Regular S1S2, no murmurs, gallops, or rubs Abdomen: Soft, non-distended, non-tender, bowel sounds present throughout Extremities: No cyanosis, clubbing, or edema, LE pulses present b/l Neurologic: No focal sensory deficit, decreased left upper aoc 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 operations staff officer strength, left side nasolabial fold asymmetry, AOx3, appropriate affect Skin: Warm, dry, no lesions or rashes noted Results Labs 06/15/24 04:40 06/15/24 04:40 Labs: Short CBC 06/14/24 06/15/24 Range/Units 14:26 04:40 WBC 7.7 7.0 (3.8-10.6) Thou/mm3 Hgb 12.9 L 12.2 L (13.5-16.0) g/dL Hct 40.7 L 38.2 L (41.0-53.0) % Plt Count 213 198 (140-440) Thou/mm3 BMP 06/14/24 06/15/24 14:26 04:40 Sodium 138 140 Potassium 3.9 3.8 Chloride 103 105 Carbon Dioxide 27.2 24.8 BUN 18 20 Creatinine 1.0 0.9 Glucose 91 112 H Calcium 9.7 9.2 Cardiac Enzymes 06/14/24 Range/Units 14:26 Troponin I < 0.020 (0.0-0.045) ng/mL Liver Function 06/14/24 06/15/24 Range/Units 14:26 04:40 Total Bilirubin 0.5 0.5 (0.3-1.2) mg/dL AST 18 17 (0-34) U/L ALT 12 9 L (10-49) U/L Alkaline Phosphatase 87 80 (46-116) U/L Albumin 4.9 H 4.3 D (3.4-4.8) gm/dL Urine 06/14/24 Range/Units 18:50 Urine Color Lt-Yellow (Lt Yel-Yel) Urine Clarity Clear (Clear/Hazy) Urine pH 6.5 (5.0-7.0) Ur Specific [place] 1.036 H (1.001-1.035) Urine Protein Negative (Neg - Trace) Urine Glucose (UA) 4+ A (Negative) Quality Measures Quality Measures none Advance care planning discussed with:: other Medications Home Medications and Allergies Home Medications ?Medication ?Instructions ?Recorded ?Confirmed ?Type atorvastatin 40 mg tablet 40 mg PO QDAY 06/15/24 06/15/24 History hydrochlorothiazide 12.5 mg tablet 12.5 mg PO QAM 06/15/24 06/15/24 History meloxicam 7.5 mg tablet 7.5 mg PO QDAY 06/15/24 06/15/24 History metformin 850 mg tablet 850 mg PO BID 06/15/24 06/15/24 History metoprolol tartrate 50 mg tablet 50 mg PO QDAY 06/15/24 06/15/24 History Allergies Allergy/AdvReac Type Severity Reaction Status Date / Time No Known Allergies Allergy Verified 06/14/24 14:20 Visit Medications Acetaminophen (Acetaminophen 325 Mg Tablet) 650 mg PO Q6H PRN PRN Reason: Fever >100.3 or pain Stop: 07/14/24 16:35 Atorvastatin Calcium (Atorvastatin Calcium 20 Mg Tablet) 40 mg PO HS VICTORIANO Stop: 07/14/24 20:59 Last Admin: 06/14/24 20:13 Dose: 40 mg Dextrose (Dextrose 50%-Water Inj 50 Ml Syringe) 25 ml IV Q15MIN PRN PRN Reason: BG 50-70 responsive npo pt Stop: 07/14/24 16:42 Dextrose (Dextrose 50%-Water Inj 50 Ml Syringe) 50 ml IV Q15MIN PRN PRN Reason: BG <50 OR BG <70 & pt unresponsive Stop: 07/14/24 16:42 Glucagon (Glucagon Inj 1 Mg Vial) 1 mg IM Q15MIN PRN PRN Reason: BG <70, and no IV access Amiodarone HCl/Dextrose (Nexterone Ivpb) 360 mg in 200 mls @ 33.333 mls/hr IV .Q6H ONE Stop: 06/15/24 17:28 Last Admin: 06/15/24 12:01 Dose: 33.333 mls/hr Amiodarone HCl/Dextrose (Nexterone Ivpb) 360 mg in 200 mls @ 16.667 mls/hr IV .Q12H [facility] Stop: 06/16/24 17:14 Insulin Glargine (Insulin Glargine (Lantus) 5 Unit/0.05 Ml (Per 5 Units)) 10 unit SC [facility] Stop: 07/15/24 20:59 Insulin Human Lispro (Insulin Lispro (Admelog) 1 Unit/0.01 Ml Unit) 0 unit SC [facility]; Protocol Stop: 07/14/24 17:44 Last Admin: 06/15/24 12:27 Dose: Not Given Labetalol HCl (Labetalol Inj 5 Mg/Ml Vial 20 Ml) 10 mg IVP Q4HR PRN PRN Reason: if SBP>220 or DBP>120 Stop: 07/14/24 17:46 Ondansetron HCl (Ondansetron Inj 2 Mg/Ml Inj 2 Ml) 4 mg IV Q4HR PRN PRN Reason: NAUSEA OR VOMITING Stop: 07/14/24 14:18 Discontinued Medications Aspirin (Aspirin 325 Mg Tablet) 325 mg PO X1 ONE Stop: 06/14/24 15:05 Last Admin: 06/14/24 15:16 Dose: 325 mg Aspirin (Aspirin Ec 81 Mg Tabec) 81 mg PO X1 ONE Stop: 06/14/24 18:28 Last Admin: 06/14/24 20:12 Dose: Not Given Aspirin (Aspirin Ec 81 Mg Tabec) 81 mg PO QDAY [facility] Stop: 07/15/24 08:59 Aspirin (Aspirin Ec 81 Mg Tabec) 81 mg PO QDAY [facility] Stop: 07/15/24 08:59 Diltiazem HCl (Diltiazem Inj 5 Mg/Ml Vial 5 Ml) 20 mg IV X1 ONE Stop: 06/15/24 11:30 Last Admin: 06/15/24 12:17 Dose: 20 mg Sodium Chloride (Ns) 1,000 mls @ 80 mls/hr IV .[id number] [facility] Stop: 06/15/24 06:16 Last Infusion: 06/15/24 07:50 Dose: Infused Magnesium Sulfate (Magnesium Sulfate Ivpb) 2 gm in 50 mls @ 25 mls/hr IV X1 ONE Stop: 06/15/24 13:10 Last Admin: 06/15/24 12:20 Dose: 25 mls/hr Amiodarone HCl/Dextrose (Nexterone Ivpb) 150 mg in 100 mls @ 600 mls/hr IV .Q10M ONE Stop: 06/15/24 11:38 Last Infusion: 06/15/24 12:12 Dose: Infused Insulin Human Lispro (Insulin Lispro (Admelog) 1 Unit/0.01 Ml Unit) 0 unit SC [facility]; Protocol Stop: 07/14/24 16:59 Last Admin: 06/14/24 18:04 Dose: Not Given Labetalol HCl (Labetalol Inj 5 Mg/Ml Vial 20 Ml) 10 mg IVP X1 PRN PRN Reason: if SBP>220 or DBP>120 Stop: 07/14/24 17:46 Potassium Chloride (Potassium Chloride 20 Meq Tabcr) 40 meq PO X1 ONE Stop: 06/15/24 11:12 Last Admin: 06/15/24 11:39 Dose: 40 meq Assessment & Plan Plan 78 years old male patient with significant medical history for, NIDDM2, HLD, HTN and previous history of stroke (10 years ago), was admitted for left side weakness and left side facial droop. Patient admitted for CVA workup, later found to have Afib with RVR. #New onset Atrial fibrllation with RVR Echocardiogram indicated: Negative bubble study. No evidence of PFO or ASD. Normal LV size and function. Mild LVH. Estimated EF 50-55%. Normal RV size and function. Severe biatrial dilatation. Mild MAC. Mild to moderate MR. Mild AV stenosis, mean gradient 13mmHg, vmax 2.6m/s. Mild to moderate AI. Mild TR. [id number] score of 7 HASBLED score of 3 (high risk) Plan: - Given possibility of brain hemhorrage, imagin need to be reviewed by neurologist and decision to start anticoagulation need to be made by them - Load with diltiazem 20 mg x1 IVP - Load with amiodarone - Start amiodarone ggt - Keep K > 4 and Mag > 2 #Hypertension Plan: - Permissive hypertension per neurology - PRN Labetalol for BP > 200/100 #HLD Plan: - Continue Atorvastatin 40 mg Qday #DM2 #CVA vs TIA -Management per primary team This patient care was discussed with attending Dr. Steve Sawyer MD PGY-2 Disclaimer: Minor errors in manager adult may be present since this note was dictated by speech recognition software.
--- NOTE | 2024-06-15 15:40 | ESPR_ITS ---
Documentation for date of: 06/15/24 Subjective Subjective Interval history: Patient was seen and examined at bedside. No acute events overnight. Patient is denying any new onset weakness, chest pain, shortness of breath, palpitations. Continues to complain of residual left-sided weakness and discomfort in left arm. No new focal deficits on physical exam. hot room attendant showed patient to be in new onset atrial fibrillation with RVR heart rate of 138. Repeat EKG showed new onset A-fib with RVR heart rate 138. Repleted 2g Mg and [address] Wilson was consulted--gave IV diltiazem 20 mg x 1 and started amiodarone drip TSH 0.33, follow up with free T4 tomorrow. May start levothyroxine. Negative bubble study. No evidence of PFO or ASD. Review of systems otherwise negative except what is mentioned above. Exam Vital Signs Temp Pulse Resp BP Pulse Ox O2 Del Method 98.8 F 77 16 123/53 L 96 Room Air 06/15/24 14:04 06/15/24 15:11 06/15/24 15:11 06/15/24 15:11 06/15/24 15:11 06/15/24 15:11 Narrative Exam General: Alert and oriented x3. No acute distress, cooperative Eyes: Pupils are equal and reactive to light bilaterally HEENT: Atraumatic, normocephalic. No JVD noted. Mucosa moist. Cardiovascular: Normal S1 and S2. Irregualr RR, tachycardia. No pitting edema Respiratory: Lungs are clear to auscultation bilaterally. No wheezing or crackles heard. Abdomen: Soft, nontender, not distended, normal bowel sounds. Skin: Warm to touch, dry, no rashes noted Musculoskeletal: No gross injuries. Able to move all 4 extremities. Neuro: No focal neuro deficits, 4/5 left side oracle etl developer strength, loss of left side nasolabial fold, difficulty in smiling, normal eyebrow raise. Psych: Normal affect and mood Objective Labs 06/16/24 05:18 06/16/24 05:18 Labs: Laboratory Results - last 24 hr 06/14/24 06/15/24 18:50 04:40 WBC 7.0 RBC 4.43 L Hgb 12.2 L Hct 38.2 L MCV 86 MCH 27.5 MCHC 31.9 RDW Std Deviation 47.7 H Plt Count 198 Neut % (Auto) 81 H Lymph % (Auto) 13 [place] % (Auto) 6 Eos % (Auto) 0 Baso % (Auto) 0 Neut # (Auto) 5.6 Lymph # (Auto) 0.9 L [place] # (Auto) 0.4 Eos # (Auto) 0.0 Baso # (Auto) 0.0 Immature Gran # (Auto) 0.00 Absolute Nucleated RBC 0.00 Immature Gran % 0 Nucleated RBC % 0 Sodium 140 Potassium 3.8 Chloride 105 Carbon Dioxide 24.8 Anion Gap 10 BUN 20 Creatinine 0.9 Estim Creat Clear Calc 57.0 L eGFR > 60 BUN/Creatinine Ratio 22 H Glucose [address] Glu mg/dL 134 H Hemoglobin A1c 6.3 H Calculated Osmolality 283 Calcium 9.2 Corrected Calcium 9.2 Phosphorus 3.8 Magnesium 1.8 Total Bilirubin 0.5 AST 17 ALT 9 L Alkaline Phosphatase 80 Total Protein 6.7 Albumin 4.3 D Globulin 2.4 Albumin/Globulin Ratio 1.8 Triglycerides 72 Cholesterol 131 L LDL Cholesterol, Calc 65 HDL Cholesterol 52 Cholesterol/HDL Ratio 2.5 L TSH 0.33 L Ur Collection Type Clean Catch Urine Color Lt-Yellow Urine Clarity Clear Urine pH 6.5 Ur Specific [place] 1.036 H Urine Protein Negative Urine Glucose (UA) 4+ A Urine Ketones Negative Urine Blood Negative Urine Nitrite Negative Urine Bilirubin Negative Urine Urobilinogen (Auto) Negative Ur Leukocyte Esterase Negative Urine RBC 1 Urine WBC < 1 Ur Squamous Epith Cells < 1 Urine Bacteria None Urine Opiates Screen Negative Urine Fentanyl Screen Negative Ur Barbiturates Screen Negative U Amphetamin/Meth Scrn Negative U Benzodiazepines Scrn Negative U Cocaine Metab Screen Negative U Marijuana (THC) Screen Negative Quality Measures Quality Measures none Advance care planning discussed with:: patient Assessment & Plan Assessment Current Active Medications: Generic Name Dose Route Start Last Admin Trade Name Freq PRN Reason Stop Dose Admin Acetaminophen 650 mg 06/14/24 16:36 Acetaminophen 325 Mg Tablet PO 07/14/24 16:35 Q6H PRN Fever >100.3 or pain Atorvastatin Calcium 40 mg 06/14/24 21:00 06/14/24 20:13 Atorvastatin Calcium 20 Mg Tablet PO 07/14/24 20:59 40 mg HS VICTORIANO Administration Dextrose 25 ml 06/14/24 16:43 Dextrose 50%-Water Inj 50 Ml Syringe IV 07/14/24 16:42 Q15MIN PRN BG 50-70 responsive npo pt Dextrose 50 ml 06/14/24 16:43 Dextrose 50%-Water Inj 50 Ml Syringe IV 07/14/24 16:42 Q15MIN PRN BG <50 OR BG <70 & pt unresponsive Glucagon 1 mg 06/14/24 16:43 Glucagon Inj 1 Mg Vial IM Q15MIN PRN BG <70, and no IV access Amiodarone HCl/Dextrose 360 mg in 200 mls @ 33.333 mls/hr 06/15/24 11:29 06/15/24 14:10 Nexterone Ivpb IV 06/15/24 17:28 Infused .Q6H ONE Infusion Amiodarone HCl/Dextrose 360 mg in 200 mls @ 16.667 mls/hr 06/15/24 17:15 Nexterone Ivpb IV 06/16/24 17:14 .Q12H [facility] Insulin Glargine 10 unit 06/15/24 21:00 Insulin Glargine (Lantus) 5 Unit/0.05 Ml (Per 5 Units) SC 07/15/24 20:59 HS [facility] Insulin Human Lispro 0 unit 06/14/24 17:45 06/15/24 12:27 Insulin Lispro (Admelog) 1 Unit/0.01 Ml Unit SC 07/14/24 17:44 Not Given [facility] Protocol Labetalol HCl 10 mg 06/14/24 18:34 Labetalol Inj 5 Mg/Ml Vial 20 Ml IVP 07/14/24 17:46 Q4HR PRN if SBP>220 or DBP>120 Ondansetron HCl 4 mg 06/14/24 14:19 Ondansetron Inj 2 Mg/Ml Inj 2 Ml IV 07/14/24 14:18 Q4HR PRN NAUSEA OR VOMITING Plan Sam Paz is 78 yr male with PMH of hypercholesterolemia, [id number] type 2 diabetes, hypertension, arthritis, previous stroke over 10 years ago, ?PAD w/stent presented to ED today after experiencing left hand and arm weakness. Patient stated that he was at home when attempting to take a shower and was not not able to turn on the shower or dress himself due to the weakness. Also has hx of multiple falls. No slurred speech, no neuro focal deficits, noticeable left-sided facial droop and loss of nasolabial fold. Patient admitted for workup of TIA. #TIA Patient presented with left sided upper extremity weakness and left facial droop. No slurred speech, no focal neurodeficits. Teleneuro was consulted. NIHSS score 5, patient not candidate for thrombolytics. Head CT negative negative for acute hemorrhage, nonhemorrhagic infarct in left parietal lobe may be chronic. CTA head/neck showed 10-30% stenosis of right carotid bifurcation, 40-60% stenosis left carotid artery bifurcation. Very atretic right vertebral artery with no large vessel occlusion. TAG 72, chol 131, LDL 65, HDL 52 ?Dr. Coffman was consulted ?continue aspirin 81 mg daily ? Echo with bubble study negative for PFO ? MRI Tiny embolic type acute infarcts in the right frontal parietal lobe and both occipital lobes ?Physical therapy/speech pathology referral pending ? passed bedside swallow screen ? Head of bed elevation 30 degrees ? 10 mg IV labetalol every 4 hours as needed if BP 220/120 ? atorvastatin 40 mg p.o. daily ?Lipid panel pending #New onset Atrial fibrllation with RVR TSH 0.33. HR 138 on repeat EKG. -Repleted 2g Mg and 40 mEq K. -Cardiology Dr. Wilson was consulted--gave IV diltiazem 20 mg x 1 and started amiodarone drip -free T4 pending -troponins negative -CHADsVASc score 7 (11.2% stroke risk per yr) -patient is at increased risk for stroke and should be started on anticoagulant but not appropriate candidate as of now due to risk of intracranial hemorrhage -HAS-BLED score 3 (high risk of major bleeding) -continue to monitor electolytes keeping potassium >4.0 and Mg >2.0 #Hx HTN #Hx HLD #Hx arthritis -started on amio drip and s/p IV dilt 20 mg x1 -atorvastatin 40 mg daily -hold meloxicam for now #Hx non insulin dependent T2DM On admission initial glucose 91. Last A1c unknown. Patient takes 750mg metformin daily for diabetes at home. TAG 72, chol 131, LDL 65, HDL 52 -Held home medications -Bedside blood glucose checks AC -Insulin lispro sliding scale -Carb consistent low diet -A1c 6.3 from 06/15/24 Health maintenance: Dispo: TIA workup DVT prophylaxis: SCDs CODE STATUS: Full code Diet: dysphagia II, low sodium The patient's management plan was discussed with my attending physician Dr. Urbina and senior Dr. Thomas. Kelly Sommer, PGY-1 L Mr Mr Paz is a [place] citizen speaking 78 year old male with history of T2DM, essential HTN, HLD, osteoarthritis, and possible PAD with stent placement, who presented to the ED with sudden onset left arm and left facial weakness. On work up, he was found to have a 23 mm non-hemorrhagic infarct on posterior parietal lobe on Head CT, and stenosis of right and left bifurcations of right and left carotid arteries on Head CTA. Brain MRI/MRA was remarkable for acute embolic infarcts and questionable subacute hematoma. A repeat Head CT was ordered to rule out any hemorrhagic conversion, which was remarkable only for a 10mm hematoma. In house neurologist Dr Coffman is consulted for further evaluation as well. Stroke protocol in place, Dysphagia 2 diet ordered after nurse swallow screen, PT eval ordered. 06/15: Patient developed new onset AFib wirht RVR, HR 140-150bpm. Cardiology consulted, appreciate recommendations. Gave Diltiazem 20mg IV x1, followed by Amio gtt x3 bags. ECHO with bubble study negative for PFO or ASD, LVEF 50-55%. CHADsVASc = 5 and HASBLED = 4. HOLD OFF on AC for now as high risk of bleeding, Cardio and Neuro on board. Patient examined and case discussed with the team including attending physician. Note reviewed, I agree with the care plan as documented. - Gregory Thomas MD, PGY 2 L Attending Provider Attestation/Addendum I have examined the patient, reviewed labs and imaging findings, discussed the case with the resident(s), and reviewed entered orders. I agree with the plan of care as outlined in this note, with these additional summaries/recommendations: Patient seen at bedside. Patient admitted overnight for strokelike symptoms. CT head showed no acute hemorrhage but did reveal 23 mm nonhemorrhagic infract left posterior parietal lobe. CTA head and neck showed no LVO or thrombus. MRI brain showed tiny embolic acute infractions in right frontal, parietal lobe, and both occipital lobes. Patient diagnosed with acute CVA. Another head CT was obtained which showed 10 mm hemorrhage in right occipital although possible over read. We will continue to hold anticoagulation for now and repeat head CT in AM. If not worsening or resolved then we can likely resume anticoagulation. Continue high intensity statin. In-house neurology following. Patient developed new onset atrial fibrillation with rapid ventricular response. Started on amiodarone gtt. and cardiology consulted. Echocardiogram obtained which revealed negative bubble study and EF of 50 to 55%. We will continue to monitor patient for any change in neurologic status and repeat imaging if needed. Repeat chemistry and hematology panel in AM. Dr. Urbina
--- NOTE | 2024-06-15 16:17 | PC.CC ---
Pt Sam Paz is an 78 yr old, Malay speaking male, admitted to hospitalist services for TIA. ASW met with pt and his Radha Paz [phone] at bedside to complete initial assessment. At time of encounter pts Caryn Paz [phone]. At time of encounter pt is noted to be alert and oriented to person, place and situation. Pt expressed understanding admission orders. Pt able to confirm most information. Pt is from home [address]. In the home pt reports he lives with his and other family members. Pt identifies his son Peter Paz [phone] as surrogate DM. In the home pt uses a cane, but states he feels unsteady with a hx of multiple falls. Pt does require some assist with his ADLs. Pt does not require supplemental O2 in his home. Pt is diabetic and is not on dialysis. Pt states he has a primary provider but is unable to provide name or clinic he is see at. ASW discussed possible recommendation for SNF placement for short term rehab. Both pt and his would like pt to return home. Per pts pt has a lot of family support. If pt declines SNF at time of D/c possible HH referral and PT recommendation for DME.
[2024-06-15] MEDS: AMIODARONE 360 MG IVPB 360 MG/200 ML BAG 16.667 MG IV (17:37)
[2024-06-15] MEDS: ATORVASTATIN CALCIUM 20 MG TABLET 40 MG PO (20:06)
[2024-06-15] MEDS: INSULIN GLARGINE (Lantus) 5 UNIT/0.05 ML (PER 5 UNITS) 10 UNIT SC (20:07)
--- NOTE | 2024-06-15 23:56 | PD.VPROG1 ---
Telemedicine visit statement This visit was conducted with the use of phone was obtained on 06/15/24 at 2356. Documentation for date of: 06/15/24 Subjective Subjective Interval history: Patient is in telemetry. No new symptoms reported. Able to move both upper and lower extremities. No complaints of dizziness, headache or vision symptoms. Virtual exam Vital Signs Temp Pulse Resp BP Pulse Ox O2 Del Method 97.1 F 61 19 139/65 H 96 Room Air 06/15/24 20:00 06/15/24 20:00 06/15/24 20:00 06/15/24 20:00 06/15/24 20:00 06/15/24 20:00 Objective Labs 06/17/24 05:20 06/17/24 05:20 Labs: Laboratory Results - last 24 hr 06/15/24 04:40 WBC 7.0 RBC 4.43 L Hgb 12.2 L Hct 38.2 L MCV 86 MCH 27.5 MCHC 31.9 RDW Std Deviation 47.7 H Plt Count 198 Neut % (Auto) 81 H Lymph % (Auto) 13 [place] % (Auto) 6 Eos % (Auto) 0 Baso % (Auto) 0 Neut # (Auto) 5.6 Lymph # (Auto) 0.9 L [place] # (Auto) 0.4 Eos # (Auto) 0.0 Baso # (Auto) 0.0 Immature Gran # (Auto) 0.00 Absolute Nucleated RBC 0.00 Immature Gran % 0 Nucleated RBC % 0 Sodium 140 Potassium 3.8 Chloride 105 Carbon Dioxide 24.8 Anion Gap 10 BUN 20 Creatinine 0.9 Estim Creat Clear Calc 57.0 L eGFR > 60 BUN/Creatinine Ratio 22 H Glucose [address] Glu mg/dL 134 H Hemoglobin A1c 6.3 H Calculated Osmolality 283 Calcium 9.2 Corrected Calcium 9.2 Phosphorus 3.8 Magnesium 1.8 Total Bilirubin 0.5 AST 17 ALT 9 L Alkaline Phosphatase 80 Total Protein 6.7 Albumin 4.3 D Globulin 2.4 Albumin/Globulin Ratio 1.8 Triglycerides 72 Cholesterol 131 L LDL Cholesterol, Calc 65 HDL Cholesterol 52 Cholesterol/HDL Ratio 2.5 L TSH 0.33 L Assessment & Plan Assessment (1) Cerebrovascular accident: Status: Acute Assessment and plan: No focal neurological deficit noted on exam. As the MRI brain and repeat CT head showed subtle hemorrhagic transformation, will hold off on the antiplatelet/anticoagulant therapy for now until the repeat study in 48 hours to decide about starting NOACs. Continue with the blood pressure control and statin (2) Atrial fibrillation: Status: Acute Assessment and plan: To be started on amiodarone tomorrow, continue with rate control.
[2024-06-16] VITALS (9 sets, daily range): BP systolic 123–168; BP diastolic 53–82; PULSE 58–118; RESP 12–97; TEMP 36.1–36.4; O2SAT 95–99; BMI 28.4
[2024-06-16] MEDS: AMIODARONE 360 MG IVPB 360 MG/200 ML BAG 16.667 MG IV (05:21)
[2024-06-16 06:16] LABS: Basophils # (Auto) 0.1 Thou/mm3 (0.0-0.2); Basophils % (Auto) 1 % (0-2.5); Eosinophils # (Auto) 0.3 Thou/mm3 (0.0-0.5); Eosinophils % (Auto) 3 % (0-10); Hematocrit 35.6 % (41.0-53.0); Hemoglobin 11.6 g/dL (13.5-16.0); Immature Granulocytes % (Auto) 0 % (0-0); Immature Granulocytes Auto 0.03 Thou/mm3 (0.00-0.00); Lymphocytes # (Auto) 1.8 Thou/mm3 (1.0-4.8); Lymphocytes % (Auto) 21 % (10-50); Mean Corpuscular HGB Conc 32.6 g/dl (31.0-37.0); Mean Corpuscular Volume 86 fL (80-100); Monocytes # (Auto) 0.7 Thou/mm3 (0.0-0.8); Monocytes % (Auto) 8 % (0-12); Neutrophils # (Auto) 5.7 Thou/mm3 (1.8-7.7); Neutrophils % (Auto) 67 % (37-80); Nucleated Red Blood Cell % 0 /100 WBC (0); Platelet Count 210 Thou/mm3 (140-440); RDW Standard Deviation 47.4 fL (35.1-43.9); Red Blood Count 4.15 Miln/mm3 (4.50-5.90); White Blood Count 8.5 Thou/mm3 (3.8-10.6)
[2024-06-16 06:58] LABS: Alanine Aminotransferase 11 U/L (10-49); Albumin, Serum 3.8 gm/dL (3.4-4.8); Albumin/Globulin Ratio 1.6 (1.2-2.2); Alkaline Phosphatase 73 U/L (46-116); Anion Gap 9 (7-16); Aspartate Amino Transferase 16 U/L (0-34); BUN/Creatinine Ratio 21 Ratio (12-20); Bilirubin,Total 0.3 mg/dL (0.3-1.2); Blood Urea Nitrogen 17 mg/dL (9-23); Calcium (Corrected) 9.2 mg/dL (8.5-10.1); Carbon Dioxide 23.6 mMol/L (20.0-31.0); Chloride 106 mMol/L (98-107); Creatinine (Component) 0.8 mg/dL (0.6-1.3); Estimated Creatinine Clearance 64.8 mL/min (>60); Free T4 (Free Thyroxine) 1.31 ng/dL (0.89-1.76); Globulin 2.4 gm/dL (2.3-3.5); Glucose 101 mg/dL (74-106); Osmolality,Calculated 279 (275-295); Sodium 139 mMol/L (136-145); Total Protein 6.2 gm/dL (5.7-8.2); eGFR > 60 See Note
--- NOTE | 2024-06-16 07:00 | XR_ITS ---
Examination: CT brain head without contrast. 2-D sagittal coronal reconstructions Date and time of exam:June 16, 2024 at 0756 hrs. Indications: Stroke alert June 14, 2024, subtle hemorrhage in the right occipital lobe at the site of right occipital lobe infarct CTDI: vol (mGy):48.9 DLP: (mGycm):1042 Technique: Multiple CT axial sections of the brain have been obtained, 5 mm slice thickness. Contrast has not been administered. 2-D sagittal, coronal reconstructions have been obtained Low dose protocols were performed. One or more of the following dose reduction techniques were used; automated exposure control, adjustment of the mA and/or KV according to patient size, use of iterative reconstruction technique. Findings: Subtle infarct in the right occipital lobe No change in equivocal minimal hemorrhagic transformation No mass effect or midline shift Basal cisterns are not remarkable. Fourth ventricle is midline. Cranial vault intact. Impression: Subtle infarct in the right occipital lobe No change in equivocal minimal hemorrhagic transformation within this infarct No interval areas of hemorrhage
[2024-06-16 11:40] LABS: Magnesium 1.9 mg/dL (1.6-2.6)
--- NOTE | 2024-06-16 13:58 | ESPR_ITS ---
<Statement entered by Lizett Wilson MD - 06/19/24 10:14> I evaluated the patient along with Dr. Ramos PGY2 resident physician patient is doing better remains in sinus rhythm has had a history of paroxysmal atrial fibrillation with possible TIA or stroke no bleeding started anticoagulation continues to improve does not complain of any cardiovascular symptoms at this time evaluated the patient all essential components are reviewed agree with the treatment plan recommendation as formulated by Dr. Ramos PGY2 Documentation for date of: 06/16/24 Subjective Subjective Interval history: 78 years old male patient with significant medical history for, NIDDM2, HLD, HTN and previous history of stroke (10 years ago), was admitted for left side weakness and left side facial droop. At baseline patient has shuffling gait which has caused multiple falls. Patient also endorsing intermittent vision changes, dysphagia and dizziness. He denied chest pain/pressure, fever, chills, NVD or other associated symptoms. Admission vitals were unremarkable, labs showed Na 138, K 3.9, glucose 91, negative trops. EKG was unremarkable. Head CT indicated 23 mm nonhemorrhagic infarct left posterior parietal lobe which may be acute nonhemorrhagic. CTA head/neck showed 10-30% stenosis of right carotid bifurcation, 40-60% stenosis left carotid artery bifurcation. Very atretic right vertebral artery with no large vessel occlusion. Repeat head CT reading indicated: Subtle 10 mm hemorrhage in the right occipital infarct described on the brain. Carotid Doppler was negative. NIHSS score was averaged to be 5 per [facility]. Patient was admitted for further CVA vs TIA workup. In morning, patient was found to have atrial fibrillation with RVR rate in the 130?s. Cardiology was thus consulted. 06/15/24: Administer diltiazam 20 mg x1 IVP, load with amiodarone, start amiodarone ggt. Given the head imaging and possibility of hemorrhage, we can not start patient on anticoagulation. Decision to start depends on neurologist review of head CT and or MRI. Echocardiogram indicated: Negative bubble study. No evidence of PFO or ASD. Normal LV size and function. Mild LVH. Estimated EF 50-55%. Normal RV size and function. Severe biatrial dilatation. Mild MAC. Mild to moderate MR. Mild AV stenosis, mean gradient 13mmHg, vmax 2.6m/s. Mild to moderate AI. Mild TR. 06/16/24: No significant overnight events. Patient has been sinus rhythm, transitioned from ggt to p.o. amiodarone. Patient has not been started on any anticoagulation, pending neurologist recommendation as there was concern for subdural bleeding. Overall patient seems to be doing better today compared to yesterday. Exam Vital Signs Temp Pulse Resp BP Pulse Ox O2 Del Method 97.5 F 72 16 168/62 H 99 Room Air 06/16/24 12:00 06/16/24 12:00 06/16/24 12:00 06/16/24 12:06/16/24 12:06/16/24 12:00 Narrative Exam Constitutional: well-developed, well-nourished, in no acute distress, lying in bed HEENT: NCAT, EOMI, reactive round pupils b/l, patent nares b/l, moist mucous membranes Lung: CTAB, no wheezing, no rhonchi Heart: Regular S1S2, no murmurs, gallops, or rubs Abdomen: Soft, non-distended, non-tender, bowel sounds present throughout Extremities: No cyanosis, clubbing, or edema, LE pulses present b/l Neurologic: No focal sensory deficit, 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, left side nasolabial fold asymmetry, AOx3, appropriate affect Skin: Warm, dry, no lesions or rashes noted Objective Labs 06/16/24 05:18 06/16/24 05:18 Labs: Laboratory Results - last 24 hr 06/16/24 05:18 WBC 8.5 RBC 4.15 L Hgb 11.6 L Hct 35.6 L MCV 86 MCH 28.0 MCHC 32.6 RDW Std Deviation 47.4 H Plt Count 210 Neut % (Auto) 67 Lymph % (Auto) 21 [place] % (Auto) 8 Eos % (Auto) 3 Baso % (Auto) 1 Neut # (Auto) 5.7 Lymph # (Auto) 1.8 [place] # (Auto) 0.7 Eos # (Auto) 0.3 Baso # (Auto) 0.1 Immature Gran # (Auto) 0.03 H Absolute Nucleated RBC 0.00 Immature Gran % 0 Nucleated RBC % 0 Sodium 139 Potassium 4.0 Chloride 106 Carbon Dioxide 23.6 Anion Gap 9 BUN 17 Creatinine 0.8 Estim Creat Clear Calc 64.8 eGFR > 60 BUN/Creatinine Ratio 21 H Glucose 101 Calculated Osmolality 279 Calcium 9.0 Corrected Calcium 9.2 Magnesium 1.9 Total Bilirubin 0.3 AST 16 ALT 11 Alkaline Phosphatase 73 Total Protein 6.2 Albumin 3.8 D Globulin 2.4 Albumin/Globulin Ratio 1.6 Free T4 1.31 Quality Measures Quality Measures none Advance care planning discussed with:: other Assessment & Plan Assessment Current Active Medications: Generic Name Dose Route Start Last Admin Trade Name Freq PRN Reason Stop Dose Admin Acetaminophen 650 mg 06/14/24 16:36 Acetaminophen 325 Mg Tablet PO 07/14/24 16:35 Q6H PRN Fever >100.3 or pain Protocol Atorvastatin Calcium 40 mg 06/14/24 21:00 06/15/24 20:06 Atorvastatin Calcium 20 Mg Tablet PO 07/14/24 20:59 40 mg HS VICTORIANO Administration Dextrose 25 ml 06/14/24 16:43 Dextrose 50%-Water Inj 50 Ml Syringe IV 07/14/24 16:42 Q15MIN PRN BG 50-70 responsive npo pt Dextrose 50 ml 06/14/24 16:43 Dextrose 50%-Water Inj 50 Ml Syringe IV 07/14/24 16:42 Q15MIN PRN BG <50 OR BG <70 & pt unresponsive Glucagon 1 mg 06/14/24 16:43 Glucagon Inj 1 Mg Vial IM Q15MIN PRN BG <70, and no IV access Amiodarone HCl/Dextrose 360 mg in 200 mls @ 16.667 mls/hr 06/15/24 17:15 06/16/24 05:21 Nexterone Ivpb IV 06/16/24 17:14 16.667 mls/hr .Q12H VICTORIANO Administration Insulin Glargine 10 unit 06/15/24 21:00 06/15/24 20:07 Insulin Glargine (Lantus) 5 Unit/0.05 Ml (Per 5 Units) SC 07/15/24 20:59 10 unit HS VICTORIANO Administration Insulin Human Lispro 0 unit 06/14/24 17:45 06/16/24 12:12 Insulin Lispro (Admelog) 1 Unit/0.01 Ml Unit SC 07/14/24 17:44 Not Given AC VICTORIANO Protocol Labetalol HCl 10 mg 06/14/24 18:34 Labetalol Inj 5 Mg/Ml Vial 20 Ml IVP 01/22/25 17:46 Q4HR PRN if SBP>220 or DBP>120 Morphine Sulfate 2 mg 06/15/24 15:42 Morphine Sulf Inj 10 Mg/Ml Vial IVP 06/20/24 15:59 Q2HR PRN chest pain 4-10 Ondansetron HCl 4 mg 06/14/24 14:19 Ondansetron Inj 2 Mg/Ml Inj 2 Ml IV 07/14/24 14:18 Q4HR PRN NAUSEA OR VOMITING Plan 78 years old male patient with significant medical history for, NIDDM2, HLD, HTN and previous history of stroke (10 years ago), was admitted for left side weakness and left side facial droop. Patient admitted for CVA workup, later found to have Afib with RVR. #New onset Atrial fibrllation with RVR Echocardiogram indicated: Negative bubble study. No evidence of PFO or ASD. Normal LV size and function. Mild LVH. Estimated EF 50-55%. Normal RV size and function. Severe biatrial dilatation. Mild MAC. Mild to moderate MR. Mild AV stenosis, mean gradient 13mmHg, vmax 2.6m/s. Mild to moderate AI. Mild TR. [id number] score of 7 HASBLED score of 3 (high risk) Plan: - Given possibility of brain hemorrhage, imaging need to be reviewed by neurologist and decision to start anticoagulation need to be made by them - Continue Amiodarone 200 mg p.o. BID - Keep K > 4 and Mag > 2 #Hypertension Plan: - Permissive hypertension per neurology - PRN Labetalol for BP > 200/100 #HLD Plan: - Continue Atorvastatin 40 mg Qday #DM2 #CVA vs TIA -Management per primary team This patient care was discussed with attending Dr. Steve Sawyer MD PGY-2 Disclaimer: Minor errors in superintendent meter tests may be present since this note was dictated by speech recognition software.
--- NOTE | 2024-06-16 17:42 | PD.RESPRO ---
Documentation for date of: 06/16/24 Subjective Subjective Interval history: Patient was seen and examined at bedside. No acute events overnight. Patient is denying any new onset weakness, chest pain, shortness of breath, palpitations. Continues to complain of residual left-sided weakness and discomfort in left arm. No new focal deficits on physical exam. financial manager showed patient still in atrial fibrillation with RVR heart rate of 115 Finished last bag of amio drip. Will start p.o. amnio 200 mg BID tomorrow. Mg 1.9, potassium 4.0 Negative bubble study. No evidence of PFO or ASD. Pending neuro recs for possible DOAC. Pt has very high risk of bleeding with small hematoma on CT head. Review of systems otherwise negative except what is mentioned above. Exam Vital Signs Temp Pulse Resp BP Pulse Ox O2 Del Method 97.6 F 63 24 H 141/64 H 97 Room Air 06/16/24 16:00 06/16/24 16:00 06/16/24 16:00 06/16/24 16:00 06/16/24 16:00 06/16/24 16:00 Narrative Exam General: Alert and oriented x3. No acute distress, cooperative Eyes: Pupils are equal and reactive to light bilaterally HEENT: Atraumatic, normocephalic. No JVD noted. Mucosa moist. Cardiovascular: Normal S1 and S2. Irregualr RR, tachycardia. No pitting edema Respiratory: Lungs are clear to auscultation bilaterally. No wheezing or crackles heard. Abdomen: Soft, nontender, not distended, normal bowel sounds. Skin: Warm to touch, dry, no rashes noted Musculoskeletal: No gross injuries. Able to move all 4 extremities. 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 Psych: Normal affect and mood Objective Labs 06/16/24 05:18 06/16/24 05:18 Labs: Laboratory Results - last 24 hr 06/16/24 05:18 WBC 8.5 RBC 4.15 L Hgb 11.6 L Hct 35.6 L MCV 86 MCH 28.0 MCHC 32.6 RDW Std Deviation 47.4 H Plt Count 210 Neut % (Auto) 67 Lymph % (Auto) 21 [place] % (Auto) 8 Eos % (Auto) 3 Baso % (Auto) 1 Neut # (Auto) 5.7 Lymph # (Auto) 1.8 [place] # (Auto) 0.7 Eos # (Auto) 0.3 Baso # (Auto) 0.1 Immature Gran # (Auto) 0.03 H Absolute Nucleated RBC 0.00 Immature Gran % 0 Nucleated RBC % 0 Sodium 139 Potassium 4.0 Chloride 106 Carbon Dioxide 23.6 Anion Gap 9 BUN 17 Creatinine 0.8 Estim Creat Clear Calc 64.8 eGFR > 60 BUN/Creatinine Ratio 21 H Glucose 101 Calculated Osmolality 279 Calcium 9.0 Corrected Calcium 9.2 Magnesium 1.9 Total Bilirubin 0.3 AST 16 ALT 11 Alkaline Phosphatase 73 Total Protein 6.2 Albumin 3.8 D Globulin 2.4 Albumin/Globulin Ratio 1.6 Free T4 1.31 Quality Measures Quality Measures none Advance care planning discussed with:: patient Assessment & Plan Assessment Current Active Medications: Generic Name Dose Route Start Last Admin Trade Name Freq PRN Reason Stop Dose Admin Acetaminophen 650 mg 06/14/24 16:36 Acetaminophen 325 Mg Tablet PO 07/14/24 16:35 Q6H PRN Fever >100.3 or pain Protocol Atorvastatin Calcium 40 mg 06/14/24 21:00 06/15/24 20:06 Atorvastatin Calcium 20 Mg Tablet PO 07/14/24 20:59 40 mg HS VICTORIANO Administration Dextrose 25 ml 06/14/24 16:43 Dextrose 50%-Water Inj 50 Ml Syringe IV 07/14/24 16:42 Q15MIN PRN BG 50-70 responsive npo pt Dextrose 50 ml 06/14/24 16:43 Dextrose 50%-Water Inj 50 Ml Syringe IV 07/14/24 16:42 Q15MIN PRN BG <50 OR BG <70 & pt unresponsive Glucagon 1 mg 06/14/24 16:43 Glucagon Inj 1 Mg Vial IM Q15MIN PRN BG <70, and no IV access Insulin Glargine 10 unit 06/15/24 21:00 06/15/24 20:07 Insulin Glargine (Lantus) 5 Unit/0.05 Ml (Per 5 Units) SC 07/15/24 20:59 10 unit HS VICTORIANO Administration Insulin Human Lispro 0 unit 06/14/24 17:45 06/16/24 17:00 Insulin Lispro (Admelog) 1 Unit/0.01 Ml Unit SC 07/14/24 17:44 Not Given AC [facility] Protocol Labetalol HCl 10 mg 06/14/24 18:34 Labetalol Inj 5 Mg/Ml Vial 20 Ml IVP 07/14/24 17:46 Q4HR PRN if SBP>220 or DBP>120 Morphine Sulfate 2 mg 06/15/24 15:42 Morphine Sulf Inj 10 Mg/Ml Vial IVP 06/20/24 15:59 Q2HR PRN chest pain 4-10 Ondansetron HCl 4 mg 06/14/24 14:19 Ondansetron Inj 2 Mg/Ml Inj 2 Ml IV 07/14/24 14:18 Q4HR PRN NAUSEA OR VOMITING Plan Sam Paz is 78 yr male with PMH of hypercholesterolemia, [id number] type 2 diabetes, hypertension, arthritis, previous stroke over 10 years ago, ?PAD w/stent presented to ED today after experiencing left hand and arm weakness. Patient stated that he was at home when attempting to take a shower and was not not able to turn on the shower or dress himself due to the weakness. Also has hx of multiple falls. No slurred speech, no neuro focal deficits, noticeable left-sided facial droop and loss of nasolabial fold. Patient admitted for workup of TIA. #New onset Atrial fibrllation with RVR TSH 0.33, free T4 1.31, HR 138 on repeat EKG. -Cardiology Dr. Wilson was consulted--finished amio loading dose -start amio 200 mg BID tomorrow -CHADsVASc score 7 (11.2% stroke risk per yr) -patient is at increased risk for stroke and should be started on anticoagulant but not appropriate candidate as of now due to risk of intracranial hemorrhage -HAS-BLED score 3 (high risk of major bleeding) -continue to monitor electolytes keeping potassium >4.0 and Mg >2.0 #CVA Patient presented with left sided upper extremity weakness and left facial droop. No slurred speech, no focal neurodeficits. Teleneuro was consulted. NIHSS score 5, patient not candidate for thrombolytics. Head CT negative negative for acute hemorrhage, nonhemorrhagic infarct in left parietal lobe may be chronic. CTA head/neck showed 10-30% stenosis of right carotid bifurcation, 40-60% stenosis left carotid artery bifurcation. Very atretic right vertebral artery with no large vessel occlusion. TAG 72, chol 131, LDL 65, HDL 52 ?Dr. Coffman was consulted ? Echo with bubble study negative for PFO ? MRI Tiny embolic type acute infarcts in the right frontal parietal lobe and both occipital lobes ? passed bedside swallow screen ? Head of bed elevation 30 degrees ? 10 mg IV labetalol every 4 hours as needed if BP 220/120 ? atorvastatin 40 mg p.o. daily -Physical therapy recommends patient to continue home PT at time of discharge #Hx HTN #Hx HLD #Hx arthritis -metoprolol tartrate 50 mg daily -atorvastatin 40 mg daily -hold meloxicam for now #Hx non insulin dependent T2DM On admission initial glucose 91. Last A1c unknown. Patient takes 750mg metformin daily for diabetes at home. TAG 72, chol 131, LDL 65, HDL 52 -Held home medications -Bedside blood glucose checks AC -Insulin lispro sliding scale -Carb consistent low diet -A1c 6.3 from 06/15/24 Health maintenance: Dispo: amiodarone loading, pending neuro recs DVT prophylaxis: SCDs CODE STATUS: Full code Diet: dysphagia II, low sodium The patient's management plan was discussed with my attending physician Dr. Urbina and senior Dr. Thomas. Kelly Sommer, PGY-1 Attending Provider Attestation/Addendum I have examined the patient, reviewed labs and imaging findings, discussed the case with the resident(s), and reviewed entered orders. I agree with the plan of care as outlined in this note, with these additional summaries/recommendations: Patient seen at bedside. No acute overnight events. Patient admitted for strokelike symptoms with left arm weakness and left facial droop. CT head showed no acute hemorrhage but did reveal 23 mm nonhemorrhagic infract left posterior parietal lobe. CTA head and neck showed no LVO or thrombus. MRI brain showed tiny embolic acute infractions in right frontal, parietal lobe, and both occipital lobes. Patient diagnosed with acute CVA. Another head CT was obtained which showed 10 mm hemorrhagic conversion in right occipital lobe. Anticoagulation was placed on hold. Repeat Head CT 06/16/24 showed no change in equivocal minimal hemorrhagic transformation within infarct. We will follow-up with neurology when able to resume aspirin and if okay to start NOAC. Continue high intensity statin. In-house neurology following. Patient developed new onset atrial fibrillation with rapid ventricular response. Started on amiodarone gtt. and cardiology consulted. Echocardiogram obtained which revealed negative bubble study and EF of 50 to 55%. We will continue to monitor patient for any change in neurologic status and repeat imaging if needed. Repeat chemistry and hematology panel in AM. Dr. Urbina
[2024-06-16] MEDS: ATORVASTATIN CALCIUM 20 MG TABLET 40 MG PO (20:17)
[2024-06-16] MEDS: INSULIN GLARGINE (Lantus) 5 UNIT/0.05 ML (PER 5 UNITS) 10 UNIT SC (20:17)
[2024-06-16] MEDS: METOPROLOL TARTRATE 25 MG TABLET 50 MG PO (20:17)
--- NOTE | 2024-06-16 22:42 | PD.NEUROPROG ---
Documentation for date of: 06/16/24 Subjective Subjective Interval history: Patient was seen in telemetry today. No new symptoms reported. Did not denies any headache dizziness or vision symptoms. Tolerating oral diet well. His rhythm goes in and out of A-fib and is going to be started on amiodarone Exam - Neurology Vital Signs Temp Pulse Resp BP Pulse Ox O2 Del Method 97.0 F 65 17 123/53 L 97 Room Air 06/16/24 20:00 06/16/24 20:17 06/16/24 20:00 06/16/24 20:17 06/16/24 20:00 06/16/24 20:00 Narrative Exam GENERAL APPEARANCE: Well hydrated, well-nourished in no acute distress. HEENT: Normocephalic, atraumatic, extraocular movements intact. Pupils: Equal reacting to light and accommodation NECK: Supple, no JVD or bruits. CARDIOVASULAR: Heart: S1, S2 heard, regular without S3-S4 or murmur no rubs or gallops. LUNGS/CHEST: Clear to auscultation bilaterally. No rails, rhonchi, or wheezing. Normal inspection. ABDOMEN: Soft, nontender, with normal bowel sounds. No pulsatile masses. No rebound, rigidity, or guarding. Normal inspection and palpation. EXTREMITIES: Normal inspection and palpation. No edema, clubbing or cyanosis. SKIN: Warm and dry without rashes. Normal inspection. MUSCULOSKELETAL: No cervical, thoracic, lumbar or midline bony tenderness. Normal inspection. NEURO: Alert, awake and oriented x2. Cranial nerves: II through XII grossly intact. Speech and language: Normal with no dysarthria or dysphasia. Motor system: Tone and bulk: Normal: Strength: 5 out of 5 in all 4 extremities; No pronator drift noted. Deep tendon reflexes: 2+ bilaterally symmetrical. Plantar reflex: Downgoing bilaterally. Sensory system: Intact to all modalities of sensation bilaterally. Coordination: Intact to [id number] and [id number] test bilaterally. No ataxia, no dysmetria, or dysdiadochokinesia noted. No intention tremors noted. Gait: Not tested no signs of meningeal irritation noted. PSYCHIATRIC: Normal mood and affect. Objective Labs 06/16/24 05:18 06/16/24 05:18 Labs: Laboratory Results - last 24 hr 06/16/24 05:18 WBC 8.5 RBC 4.15 L Hgb 11.6 L Hct 35.6 L MCV 86 MCH 28.0 MCHC 32.6 RDW Std Deviation 47.4 H Plt Count 210 Neut % (Auto) 67 Lymph % (Auto) 21 [place] % (Auto) 8 Eos % (Auto) 3 Baso % (Auto) 1 Neut # (Auto) 5.7 Lymph # (Auto) 1.8 [place] # (Auto) 0.7 Eos # (Auto) 0.3 Baso # (Auto) 0.1 Immature Gran # (Auto) 0.03 H Absolute Nucleated RBC 0.00 Immature Gran % 0 Nucleated RBC % 0 Sodium 139 Potassium 4.0 Chloride 106 Carbon Dioxide 23.6 Anion Gap 9 BUN 17 Creatinine 0.8 Estim Creat Clear Calc 64.8 eGFR > 60 BUN/Creatinine Ratio 21 H Glucose 101 Calculated Osmolality 279 Calcium 9.0 Corrected Calcium 9.2 Magnesium 1.9 Total Bilirubin 0.3 AST 16 ALT 11 Alkaline Phosphatase 73 Total Protein 6.2 Albumin 3.8 D Globulin 2.4 Albumin/Globulin Ratio 1.6 Free T4 1.31 Assessment & Plan Assessment and plan (1) Cerebrovascular accident: Status: Acute Assessment and plan: No focal neurological deficit noted on exam. As the MRI brain and repeat CT head showed subtle hemorrhagic transformation, will hold off on the antiplatelet/anticoagulant therapy for now until the repeat study in 48 hours to decide about starting NOACs. Continue with the blood pressure control and statin (2) Atrial fibrillation: Status: Acute Assessment and plan: To be started on amiodarone tomorrow, continue with rate control.
[2024-06-17] VITALS (12 sets, daily range): BP systolic 126–166; BP diastolic 50–86; PULSE 56–142; RESP 12–93; TEMP 35.8–36.5; O2SAT 94–97; BMI 27.3
[2024-06-17 06:40] LABS: Basophils % (Auto) 0 % (0-2.5); Eosinophils # (Auto) 0.3 Thou/mm3 (0.0-0.5); Eosinophils % (Auto) 4 % (0-10); Hemoglobin 11.6 g/dL (13.5-16.0); Immature Granulocytes % (Auto) 0 % (0-0); Immature Granulocytes Auto 0.02 Thou/mm3 (0.00-0.00); Lymphocytes # (Auto) 1.6 Thou/mm3 (1.0-4.8); Lymphocytes % (Auto) 22 % (10-50); Mean Corpuscular HGB Conc 32.2 g/dl (31.0-37.0); Mean Corpuscular Hemoglobin 27.4 pg (25.0-35.0); Mean Corpuscular Volume 85 fL (80-100); Monocytes # (Auto) 0.7 Thou/mm3 (0.0-0.8); Monocytes % (Auto) 10 % (0-12); Neutrophils # (Auto) 4.7 Thou/mm3 (1.8-7.7); Neutrophils % (Auto) 64 % (37-80); Nucleated Red Blood Cell % 0 /100 WBC (0); Platelet Count 185 Thou/mm3 (140-440); RDW Standard Deviation 47.1 fL (35.1-43.9); Red Blood Count 4.24 Miln/mm3 (4.50-5.90); White Blood Count 7.3 Thou/mm3 (3.8-10.6)
[2024-06-17 07:08] LABS: Alanine Aminotransferase 11 U/L (10-49); Albumin, Serum 3.9 gm/dL (3.4-4.8); Albumin/Globulin Ratio 1.8 (1.2-2.2); Alkaline Phosphatase 70 U/L (46-116); Anion Gap 6 (7-16); Aspartate Amino Transferase 15 U/L (0-34); BUN/Creatinine Ratio 28 Ratio (12-20); Bilirubin,Total 0.4 mg/dL (0.3-1.2); Blood Urea Nitrogen 22 mg/dL (9-23); Calcium (Corrected) 9.1 mg/dL (8.5-10.1); Carbon Dioxide 25.7 mMol/L (20.0-31.0); Chloride 107 mMol/L (98-107); Creatinine (Component) 0.8 mg/dL (0.6-1.3); Estimated Creatinine Clearance 63.6 mL/min (>60); Globulin 2.2 gm/dL (2.3-3.5); Glucose 73 mg/dL (74-106); Magnesium 1.8 mg/dL (1.6-2.6); Osmolality,Calculated 279 (275-295); Potassium 3.8 mMol/L (3.4-5.1); Sodium 139 mMol/L (136-145); Total Protein 6.1 gm/dL (5.7-8.2); eGFR > 60 See Note
[2024-06-17] MEDS: POTASSIUM CHLORIDE 20 mEq TABCR PO (08:04)
[2024-06-17] MEDS: AMIODARONE HCL 200 MG TABLET PO ×2 (08:04→20:51)
[2024-06-17] MEDS: METOPROLOL TARTRATE 25 MG TABLET 50 MG PO ×2 (08:07→20:51)
[2024-06-17] MEDS: APIXABAN 2.5 MG TABLET PO ×2 (08:11→20:51)
--- NOTE | 2024-06-17 08:13 | PC.NURSE ---
MD made aware of pt in Afib rvr 140-150. pt is asymptomatic. vitals stable. will continue to monitor
--- NOTE | 2024-06-17 09:45 | ESPR_ITS ---
<Statement entered by Laz Juan DO - 06/17/24 20:36> Senior attestation: Patient was examined and case was reviewed with team including attending physician. Note reviewed, I agree with most of its contents and agree with the patient's care. Neurology team following, advised to start apixaban today at 2.5mg PO BID dose and repeat head CT on 06/18 morning to assess for any changes. Possible discharge in 24-[address] findings and clinical stability. Laz Juan DO PGY-3 Documentation for date of: 06/17/24 Subjective Subjective Interval history: Patient was seen and examined at bedside. No acute events overnight. Denies any chest pain, SOB, palpiations. No new focal deficits. In NSR with HR70-8, BP elevated 150-160s systolic. Increase metoprolol tartrate to home dose 50 BID and start losartan 50 PO daily. Continue to monitor BP Continue amiodarone 200 mg BID for new onset Afib. Neuro was consulted for recommendations on anticoag. Start apixaban 2.5 mg pO daily and repeat CT head 06/18 morning to re asses for any change in hematoma. Hb 11.6, potassium 3.8--repleated with 20 mEq. Anticipate d/c in next [address] head shows no worsening hematoma. Review of systems otherwise negative except what is mentioned above. Exam Vital Signs Temp Pulse Resp BP Pulse Ox O2 Del Method 96.4 F L 142 H 18 143/86 H 94 L Room Air 06/17/24 08:00 06/17/24 08:07 06/17/24 08:00 06/17/24 08:07 06/17/24 08:00 06/17/24 08:00 Narrative Exam General: Alert and oriented x3. No acute distress, cooperative Eyes: Pupils are equal and reactive to light bilaterally HEENT: Atraumatic, normocephalic. No JVD noted. Mucosa moist. Cardiovascular: Normal S1 and S2. RRR, tachycardia. No pitting edema Respiratory: Lungs are clear to auscultation bilaterally. No wheezing or crackles heard. Abdomen: Soft, nontender, not distended, normal bowel sounds. Skin: Warm to touch, dry, no rashes noted Musculoskeletal: No gross injuries. Able to move all 4 extremities. Neuro: No focal neuro deficits, 4/5 left side telephone claims representative strength, loss of left side nasolabial fold, difficulty in smiling, normal eyebrow raise. Psych: Normal affect and mood Objective Labs 06/17/24 05:20 06/17/24 05:20 Labs: Laboratory Results - last 24 hr 06/16/24 06/17/24 05:18 05:20 WBC 7.3 RBC 4.24 L Hgb 11.6 L Hct 36.0 L MCV 85 MCH 27.4 MCHC 32.2 RDW Std Deviation 47.1 H Plt Count 185 Neut % (Auto) 64 Lymph % (Auto) 22 [place] % (Auto) 10 Eos % (Auto) 4 Baso % (Auto) 0 Neut # (Auto) 4.7 Lymph # (Auto) 1.6 [place] # (Auto) 0.7 Eos # (Auto) 0.3 Baso # (Auto) 0.0 Immature Gran # (Auto) 0.02 H Absolute Nucleated RBC 0.00 Immature Gran % 0 Nucleated RBC % 0 Sodium 139 Potassium 3.8 Chloride 107 Carbon Dioxide 25.7 Anion Gap 6 L BUN 22 Creatinine 0.8 Estim Creat Clear Calc 63.6 eGFR > 60 BUN/Creatinine Ratio 28 H Glucose 73 L Calculated Osmolality 279 Calcium 9.0 Corrected Calcium 9.1 Magnesium 1.9 1.8 Total Bilirubin 0.4 AST 15 ALT 11 Alkaline Phosphatase 70 Total Protein 6.1 Albumin 3.9 Globulin 2.2 L Albumin/Globulin Ratio 1.8 Quality Measures Quality Measures none Advance care planning discussed with:: patient Assessment & Plan Assessment Current Active Medications: Generic Name Dose Route Start Last Admin Trade Name Freq PRN Reason Stop Dose Admin Acetaminophen 650 mg 06/14/24 16:36 Acetaminophen 325 Mg Tablet PO 07/14/24 16:35 Q6H PRN Fever >100.3 or pain Protocol Amiodarone HCl 200 mg 06/17/24 09:00 06/17/24 08:04 Amiodarone Hcl 200 Mg Tablet PO 07/17/24 08:59 200 mg BID VICTORIANO Administration Apixaban 2.5 mg 06/17/24 09:00 06/17/24 08:11 Apixaban 2.5 Mg Tablet PO 07/17/24 08:59 2.5 mg BID VICTORIANO Administration Atorvastatin Calcium 40 mg 06/14/24 21:00 06/16/24 20:17 Atorvastatin Calcium 20 Mg Tablet PO 07/14/24 20:59 40 mg HS VICTORIANO Administration Dextrose 25 ml 06/14/24 16:43 Dextrose 50%-Water Inj 50 Ml Syringe IV 07/14/24 16:42 Q15MIN PRN BG 50-70 responsive npo pt Dextrose 50 ml 06/14/24 16:43 Dextrose 50%-Water Inj 50 Ml Syringe IV 07/14/24 16:42 Q15MIN PRN BG <50 OR BG <70 & pt unresponsive Glucagon 1 mg 06/14/24 16:43 Glucagon Inj 1 Mg Vial IM Q15MIN PRN BG <70, and no IV access Insulin Glargine 10 unit 06/15/24 21:00 06/16/24 20:17 Insulin Glargine (Lantus) 5 Unit/0.05 Ml (Per 5 Units) SC 07/15/24 20:59 10 unit HS VICTORIANO Administration Insulin Human Lispro 0 unit 06/14/24 17:45 06/17/24 07:32 Insulin Lispro (Admelog) 1 Unit/0.01 Ml Unit SC 07/14/24 17:44 Not Given AC COUNTS INCLUDE 234 BEDS AT THE [facility] Protocol Labetalol HCl 10 mg 06/14/24 18:34 Labetalol Inj 5 Mg/Ml Vial 20 Ml IVP 07/14/24 17:46 Q4HR PRN if SBP>220 or DBP>120 Metoprolol Tartrate 50 mg 06/16/24 19:45 06/17/24 08:07 Metoprolol Tartrate 25 Mg Tablet PO 07/16/24 19:44 50 mg DAILY VICTORIANO Administration Morphine Sulfate 2 mg 06/15/24 15:42 Morphine Sulf Inj 10 Mg/Ml Vial IVP 06/20/24 15:59 Q2HR PRN chest pain 4-10 Ondansetron HCl 4 mg 06/14/24 14:19 Ondansetron Inj 2 Mg/Ml Inj 2 Ml IV 07/14/24 14:18 Q4HR PRN NAUSEA OR VOMITING Plan Sam Paz is 78 yr male with PMH of hypercholesterolemia, day-wsodrfe-guayfpqca type 2 diabetes, hypertension, arthritis, previous stroke over 10 years ago, ?PAD w/stent presented to ED today after experiencing left hand and arm weakness. Patient stated that he was at home when attempting to take a shower and was not not able to turn on the shower or dress himself due to the weakness. Also has hx of multiple falls. No slurred speech, no neuro focal deficits, noticeable left-sided facial droop and loss of nasolabial fold. Patient admitted for workup of TIA. #New onset Atrial fibrllation with RVR TSH 0.33, free T4 1.31, HR 138 on repeat EKG. -Cardiology Dr. Wilson was consulted--finished amio loading dose -continue amio 200 mg BID--in NSR -CHADsVASc score 7 (11.2% stroke risk per yr) -patient is at increased risk for stroke and should be started on anticoagulant but not appropriate candidate as of now due to risk of intracranial hemorrhage -HAS-BLED score 3 (high risk of major bleeding). Neurology was consulted and Dr. Meghna callejasayed to start patient on apixaban 2.5 mg twice daily for anticoagulation. -Follow-up on repeat CT head 06/18 to reassess for any worsening hematoma on imaging -continue to monitor electolytes keeping potassium >4.0 and Mg >2.0 #CVA Patient presented with left sided upper extremity weakness and left facial droop. No slurred speech, no focal neurodeficits. Teleneuro was consulted. NIHSS score 5, patient not candidate for thrombolytics. Head CT negative negative for acute hemorrhage, nonhemorrhagic infarct in left parietal lobe may be chronic. CTA head/neck showed 10-30% stenosis of right carotid bifurcation, 40-60% stenosis left carotid artery bifurcation. Very atretic right vertebral artery with no large vessel occlusion. TAG 72, chol 131, LDL 65, HDL 52 ?Dr. Coffman was consulted ? Echo with bubble study negative for PFO ? MRI Tiny embolic type acute infarcts in the right frontal parietal lobe and both occipital lobes ? passed bedside swallow screen ? Head of bed elevation 30 degrees ? 10 mg IV labetalol every 4 hours as needed if BP 220/120 ? atorvastatin 40 mg p.o. daily -Physical therapy recommends patient to continue home PT at time of discharge #Hx HTN #Hx HLD - increase metoprolol tartrate 50 mg daily to home dose of 50 mg PO BID -start losartan 50 mg ddaily -contineu to watch BP -atorvastatin 40 mg daily #Hx arthritis -hold meloxicam for now #Hx non insulin dependent T2DM On admission initial glucose 91. Last A1c unknown. Patient takes 750mg metformin daily for diabetes at home. TAG 72, chol 131, LDL 65, HDL 52 -Held home medications -Bedside blood glucose checks AC -Insulin lispro sliding scale -Carb consistent low diet -A1c 6.3 from 06/15/24 Health maintenance: Dispo: d/c pending CT head results DVT prophylaxis: SCDs CODE STATUS: Full code Diet: dysphagia II, low sodium The patient's management plan was discussed with my attending physician Dr. Cruz and senior Dr. Juan. Kelly Sommer, PGY-1 Attending Provider Attestation/Addendum I have discussed and was present for the essential components of the history, physical examination, diagnosis, and treatment plan with the resident. I agree with the patient's care as documented by the resident and amended herein by me. Fuentes Cruz DO. Patient seen and evaluated this AM. Patient doing well today, no subjective complaints, vital signs stable, patient afebrile overnight. Labs largely unremarkable/stable. Will continue the patient on low-dose Eliquis 2.5 mg twice daily and amiodarone for atrial fibrillation. Repeat CT without contrast ordered for tomorrow morning to evaluate for evolving hemorrhagic transformation. Likely discharge home with home health if CT demonstrates stable infarct. Although this document has been carefully reviewed, there may still be some phonetic and other typographical errors. These errors are purely grammatical due to imperfections in the software program and should not be construed in any way to compromise the substance of the patient's medical care during this visit.
[2024-06-17] MEDS: LOSARTAN POTASSIUM 25 MG TABLET 50 MG PO (11:57)
--- NOTE | 2024-06-17 15:41 | PC.SS ---
Rounding Note: Neurology consult pending. Plan is to d/c tomorrow.
--- NOTE | 2024-06-17 18:58 | ESPR_ITS ---
<Statement entered by Lizett Wilson MD - 06/19/24 10:24> I personally evaluated the patient along with PGY 2 Dr. Ramos patient is doing better but has intermittently frequent atrial fibrillation episodes no evidence of bleeding and is was started on anticoagulation with no problems. Agree with the treatment plan recommendation as formulated by Dr. Ramos PGY2 will continue to follow the patient Documentation for date of: 06/17/24 Subjective Subjective Interval history: 78 years old male patient with significant medical history for, NIDDM2, HLD, HTN and previous history of stroke (10 years ago), was admitted for left side weakness and left side facial droop. At baseline patient has shuffling gait which has caused multiple falls. Patient also endorsing intermittent vision changes, dysphagia and dizziness. He denied chest pain/pressure, fever, chills, NVD or other associated symptoms. Admission vitals were unremarkable, labs showed Na 138, K 3.9, glucose 91, negative trops. EKG was unremarkable. Head CT indicated 23 mm nonhemorrhagic infarct left posterior parietal lobe which may be acute nonhemorrhagic. CTA head/neck showed 10-30% stenosis of right carotid bifurcation, 40-60% stenosis left carotid artery bifurcation. Very atretic right vertebral artery with no large vessel occlusion. Repeat head CT reading indicated: Subtle 10 mm hemorrhage in the right occipital infarct described on the brain. Carotid Doppler was negative. NIHSS score was averaged to be 5 per [employer]. Patient was admitted for further CVA vs TIA workup. In morning, patient was found to have atrial fibrillation with RVR rate in the 130?s. Cardiology was thus consulted. 06/15/24: Administer diltiazam 20 mg x1 IVP, load with amiodarone, start amiodarone ggt. Given the head imaging and possibility of hemorrhage, we can not start patient on anticoagulation. Decision to start depends on neurologist review of head CT and or MRI. Echocardiogram indicated: Negative bubble study. No evidence of PFO or ASD. Normal LV size and function. Mild LVH. Estimated EF 50-55%. Normal RV size and function. Severe biatrial dilatation. Mild MAC. Mild to moderate MR. Mild AV stenosis, mean gradient 13mmHg, vmax 2.6m/s. Mild to moderate AI. Mild TR. 06/16/24: No significant overnight events. Patient has been sinus rhythm, transitioned from ggt to p.o. amiodarone. Patient has not been started on any anticoagulation, pending neurologist recommendation as there was concern for subdural bleeding. Overall patient seems to be doing better today compared to yesterday. 06/17/24: Patient continues to have intermittent A-fib with rates in the low 100s. Continue Amio 200 mg twice daily along with Eliquis 2.5 mg twice daily. If blood pressure stable patient can be started on home med metoprolol tartrate 50 mg. At this point cardiology team will sign off on this case, thank you for allowing us in taking care of this patient. Exam Vital Signs Temp Pulse Resp BP Pulse Ox O2 Del Method 97.7 F 64 16 126/50 L 97 Room Air 06/17/24 16:00 06/17/24 16:00 06/17/24 16:00 06/17/24 16:00 06/17/24 16:00 06/17/24 16:00 Narrative Exam Constitutional: well-developed, well-nourished, in no acute distress, lying in bed HEENT: NCAT, EOMI, reactive round pupils b/l, patent nares b/l, moist mucous membranes Lung: CTAB, no wheezing, no rhonchi Heart: Regular S1S2, no murmurs, gallops, or rubs Abdomen: Soft, non-distended, non-tender, bowel sounds present throughout Extremities: No cyanosis, clubbing, or edema, LE pulses present b/l Neurologic: No focal sensory deficit, upper and lower extremity improved, left side nasolabial fold asymmetry, AOx3, appropriate affect Skin: Warm, dry, no lesions or rashes noted Objective Labs 06/17/24 05:20 06/17/24 05:20 Labs: Laboratory Results - last 24 hr 06/17/24 05:20 WBC 7.3 RBC 4.24 L Hgb 11.6 L Hct 36.0 L MCV 85 MCH 27.4 MCHC 32.2 RDW Std Deviation 47.1 H Plt Count 185 Neut % (Auto) 64 Lymph % (Auto) 22 [place] % (Auto) 10 Eos % (Auto) 4 Baso % (Auto) 0 Neut # (Auto) 4.7 Lymph # (Auto) 1.6 [place] # (Auto) 0.7 Eos # (Auto) 0.3 Baso # (Auto) 0.0 Immature Gran # (Auto) 0.02 H Absolute Nucleated RBC 0.00 Immature Gran % 0 Nucleated RBC % 0 Sodium 139 Potassium 3.8 Chloride 107 Carbon Dioxide 25.7 Anion Gap 6 L BUN 22 Creatinine 0.8 Estim Creat Clear Calc 63.6 eGFR > 60 BUN/Creatinine Ratio 28 H Glucose 73 L Calculated Osmolality 279 Calcium 9.0 Corrected Calcium 9.1 Magnesium 1.8 Total Bilirubin 0.4 AST 15 ALT 11 Alkaline Phosphatase 70 Total Protein 6.1 Albumin 3.9 Globulin 2.2 L Albumin/Globulin Ratio 1.8 Quality Measures Quality Measures none Advance care planning discussed with:: other Assessment & Plan Assessment Current Active Medications: Generic Name Dose Route Start Last Admin Trade Name Freq PRN Reason Stop Dose Admin Acetaminophen 650 mg 06/14/24 16:36 Acetaminophen 325 Mg Tablet PO 07/14/24 16:35 Q6H PRN Fever >100.3 or pain Protocol Amiodarone HCl 200 mg 06/17/24 09:00 06/17/24 08:04 Amiodarone Hcl 200 Mg Tablet PO 07/17/24 08:59 200 mg BID VICTORIANO Administration Apixaban 2.5 mg 06/17/24 09:00 06/17/24 08:11 Apixaban 2.5 Mg Tablet PO 07/17/24 08:59 2.5 mg BID VICTORIANO Administration Atorvastatin Calcium 40 mg 06/14/24 21:00 06/16/24 20:17 Atorvastatin Calcium 20 Mg Tablet PO 07/14/24 20:59 40 mg HS VICTORIANO Administration Dextrose 25 ml 06/14/24 16:43 Dextrose 50%-Water Inj 50 Ml Syringe IV 07/14/24 16:42 Q15MIN PRN BG 50-70 responsive npo pt Dextrose 50 ml 06/14/24 16:43 Dextrose 50%-Water Inj 50 Ml Syringe IV 07/14/24 16:42 Q15MIN PRN BG <50 OR BG <70 & pt unresponsive Glucagon 1 mg 06/14/24 16:43 Glucagon Inj 1 Mg Vial IM Q15MIN PRN BG <70, and no IV access Insulin Glargine 10 unit 06/15/24 21:00 06/16/24 20:17 Insulin Glargine (Lantus) 5 Unit/0.05 Ml (Per 5 Units) SC 07/15/24 20:59 10 unit HS VICTORIANO Administration Insulin Human Lispro 0 unit 06/14/24 17:45 06/17/24 16:55 Insulin Lispro (Admelog) 1 Unit/0.01 Ml Unit SC 07/14/24 17:44 Not Given AC [facility] Protocol Labetalol HCl 10 mg 06/14/24 18:34 Labetalol Inj 5 Mg/Ml Vial 20 Ml IVP 07/14/24 17:46 Q4HR PRN if SBP>220 or DBP>120 Losartan Potassium 50 mg 06/17/24 11:15 06/17/24 11:57 Losartan Potassium 25 Mg Tablet PO 07/17/24 11:14 50 mg QDAY VICTORIANO Administration Metoprolol Tartrate 50 mg 06/17/24 21:00 Metoprolol Tartrate 25 Mg Tablet PO 07/17/24 20:59 BID VICTORIANO Morphine Sulfate 2 mg 06/15/24 15:42 Morphine Sulf Inj 10 Mg/Ml Vial IVP 06/20/24 15:59 Q2HR PRN chest pain 4-10 Ondansetron HCl 4 mg 06/14/24 14:19 Ondansetron Inj 2 Mg/Ml Inj 2 Ml IV 07/14/24 14:18 Q4HR PRN NAUSEA OR VOMITING Plan 78 years old male patient with significant medical history for, NIDDM2, HLD, HTN and previous history of stroke (10 years ago), was admitted for left side weakness and left side facial droop. Patient admitted for CVA workup, later found to have Afib with RVR. At this point cardiology team will sign off on this case, thank you for allowing us in taking care of this patient. #New onset Atrial fibrllation with RVR Echocardiogram indicated: Negative bubble study. No evidence of PFO or ASD. Normal LV size and function. Mild LVH. Estimated EF 50-55%. Normal RV size and function. Severe biatrial dilatation. Mild MAC. Mild to moderate MR. Mild AV stenosis, mean gradient 13mmHg, vmax 2.6m/s. Mild to moderate AI. Mild TR. [id number] score of 7 HASBLED score of 3 (high risk) Plan: - Given possibility of brain hemorrhage, imaging need to be reviewed by neurologist and decision to start anticoagulation need to be made by them - Continue Amiodarone 200 mg p.o. BID - Continue Eliquis 2.5 mg BID - Consider starting Metoprolol tartrate if BP stable - Keep K > 4 and Mag > 2 #Hypertension Plan: - Can restart home med #HLD Plan: - Continue Atorvastatin 40 mg Qday #DM2 #CVA vs TIA -Management per primary team This patient care was discussed with attending Dr. Steve Sawyer MD PGY-2 Disclaimer: Minor errors in library technical assistant may be present since this note was dictated by speech recognition software.
[2024-06-17] MEDS: ATORVASTATIN CALCIUM 20 MG TABLET 40 MG PO (20:51)
--- NOTE | 2024-06-17 23:42 | PD.VPROG1 ---
Telemedicine visit statement This visit was conducted with the use of phone was obtained on 06/17/24 at 2342. Documentation for date of: 06/17/24 Subjective Subjective Interval history: Patient is in telemetry. No new symptoms reported. Able to move both upper and lower extremities. No complaints of dizziness, headache or vision symptoms. Virtual exam Vital Signs Temp Pulse Resp BP Pulse Ox O2 Del Method 97.3 F 81 17 138/70 H 97 Room Air 06/17/24 20:00 06/17/24 20:51 06/17/24 20:00 06/17/24 20:51 06/17/24 20:00 06/17/24 20:00 Objective Labs 06/17/24 05:20 06/17/24 05:20 Labs: Laboratory Results - last 24 hr 06/17/24 05:20 WBC 7.3 RBC 4.24 L Hgb 11.6 L Hct 36.0 L MCV 85 MCH 27.4 MCHC 32.2 RDW Std Deviation 47.1 H Plt Count 185 Neut % (Auto) 64 Lymph % (Auto) 22 [place] % (Auto) 10 Eos % (Auto) 4 Baso % (Auto) 0 Neut # (Auto) 4.7 Lymph # (Auto) 1.6 [place] # (Auto) 0.7 Eos # (Auto) 0.3 Baso # (Auto) 0.0 Immature Gran # (Auto) 0.02 H Absolute Nucleated RBC 0.00 Immature Gran % 0 Nucleated RBC % 0 Sodium 139 Potassium 3.8 Chloride 107 Carbon Dioxide 25.7 Anion Gap 6 L BUN 22 Creatinine 0.8 Estim Creat Clear Calc 63.6 eGFR > 60 BUN/Creatinine Ratio 28 H Glucose 73 L Calculated Osmolality 279 Calcium 9.0 Corrected Calcium 9.1 Magnesium 1.8 Total Bilirubin 0.4 AST 15 ALT 11 Alkaline Phosphatase 70 Total Protein 6.1 Albumin 3.9 Globulin 2.2 L Albumin/Globulin Ratio 1.8 Assessment & Plan Assessment (1) Cerebrovascular accident: No focal neurological deficit noted on exam. As the MRI brain and repeat CT head showed subtle hemorrhagic transformation, will start low-dose of Eliquis 2.5 mg twice a day and repeat the CT head in 48 hours. Continue with the blood pressure control and statin (2) Atrial fibrillation: With rate controlled and on amiodarone.
[2024-06-18] VITALS (7 sets, daily range): BP systolic 129–154; BP diastolic 54–64; PULSE 55–85; RESP 16–18; TEMP 36–36.8; O2SAT 94–96
[2024-06-18 06:00] LABS: Basophils # (Auto) 0.1 Thou/mm3 (0.0-0.2); Basophils % (Auto) 1 % (0-2.5); Eosinophils # (Auto) 0.3 Thou/mm3 (0.0-0.5); Eosinophils % (Auto) 3 % (0-10); Hematocrit 41.4 % (41.0-53.0); Hemoglobin 13.3 g/dL (13.5-16.0); Immature Granulocytes % (Auto) 0 % (0-0); Immature Granulocytes Auto 0.02 Thou/mm3 (0.00-0.00); Lymphocytes # (Auto) 2.1 Thou/mm3 (1.0-4.8); Lymphocytes % (Auto) 23 % (10-50); Mean Corpuscular HGB Conc 32.1 g/dl (31.0-37.0); Mean Corpuscular Hemoglobin 27.8 pg (25.0-35.0); Mean Corpuscular Volume 86 fL (80-100); Monocytes # (Auto) 0.8 Thou/mm3 (0.0-0.8); Monocytes % (Auto) 9 % (0-12); Neutrophils % (Auto) 65 % (37-80); Nucleated Red Blood Cell % 0 /100 WBC (0); Platelet Count 159 Thou/mm3 (140-440); RDW Standard Deviation 48.4 fL (35.1-43.9); Red Blood Count 4.79 Miln/mm3 (4.50-5.90); White Blood Count 9.3 Thou/mm3 (3.8-10.6)
[2024-06-18 06:35] LABS: Alanine Aminotransferase 14 U/L (10-49); Albumin, Serum 4.3 gm/dL (3.4-4.8); Albumin/Globulin Ratio 1.6 (1.2-2.2); Alkaline Phosphatase 82 U/L (46-116); Anion Gap 10 (7-16); Aspartate Amino Transferase 11 U/L (0-34); BUN/Creatinine Ratio 22 Ratio (12-20); Bilirubin,Total 0.7 mg/dL (0.3-1.2); Blood Urea Nitrogen 20 mg/dL (9-23); Calcium 9.2 mg/dL (8.3-10.6); Calcium (Corrected) 9.2 mg/dL (8.5-10.1); Carbon Dioxide 22.6 mMol/L (20.0-31.0); Chloride 105 mMol/L (98-107); Creatinine (Component) 0.9 mg/dL (0.6-1.3); Estimated Creatinine Clearance 56.8 mL/min (>60); Globulin 2.7 gm/dL (2.3-3.5); Glucose 88 mg/dL (74-106); Magnesium 1.8 mg/dL (1.6-2.6); Osmolality,Calculated 277 (275-295); Potassium 4.5 mMol/L (3.4-5.1); Sodium 138 mMol/L (136-145); eGFR > 60 See Note
--- NOTE | 2024-06-18 07:00 | XR_ITS ---
Examination: CT brain head without contrast. 2-D sagittal coronal reconstructions Date and time of exam:June 18, 2024 0952 hours INDICATIONS: CT brain scan June 16, 2024, infarct in the right occipital lobe with subtle hemorrhagic transformation CTDI: vol (mGy):49.7 DLP: (mGycm):1097 Technique: Multiple CT axial sections of the brain have been obtained, 5 mm slice thickness. Contrast has not been administered. 2-D sagittal, coronal reconstructions have been obtained Low dose protocols were performed. One or more of the following dose reduction techniques were used; automated exposure control, adjustment of the mA and/or KV according to patient size, use of iterative reconstruction technique. Findings: Stable right occipital lobe infarct Very subtle hyperdensity in the right occipital infarct which may represent very minimal hemorrhagic transformation No new hemorrhage Ventricles are not enlarged No mass effect upon the ventricular system IMPRESSION: Stable right occipital lobe infarct with possible very minimal hemorrhagic transformation
[2024-06-18] MEDS: METOPROLOL TARTRATE 25 MG TABLET 50 MG PO (08:30)
[2024-06-18] MEDS: AMIODARONE HCL 200 MG TABLET PO (08:32)
[2024-06-18] MEDS: LOSARTAN POTASSIUM 25 MG TABLET 50 MG PO (08:33)
[2024-06-18] MEDS: APIXABAN 2.5 MG TABLET PO (08:33)
--- NOTE | 2024-06-18 11:03 | EKG_ITS ---
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
--- NOTE | 2024-06-18 12:10 | PC.CM ---
Addendum entered by Lindsey Flores RN 06/29/24 13:14: [facility] accepted patient at the end of May. [facility] attempted to contact patient on several occasions but they were not able to get a call back. They left messages and no one called back. [facility] closed the referral today. Original Note: I received a home health order for patient. there was not a PCP identified in SS notes. I called I[facility] and asked if she could speak to patient to find out if he has a primary care doctor.
--- NOTE | 2024-06-18 12:25 | PD.RESDS ---
Planned Discharge Date 06/18/24 DS: Providers Provider Date of admission: 06/14/24 16:36 Primary care physician: Physician No Primary/Family Admitting Provider: Aureliano Cruz DO Attending Provider on Admission: Aureliano Cruz DO Consults: 06/14/24 14:19 Consult to Neurology / Tele-Neurology Routine Comment: Consulting Provider: [facility] 06/14/24 16:46 Referral Physical Therapy Routine Comment: Physician Instructions: Instructions: Patient here for CVA workup. Also has history of multiple falls due to frequent tripping. 06/14/24 16:48 Referral Speech Therapy Routine Comment: CVA workup 06/14/24 16:49 Consult to Neurology / Tele-Neurology Stat Comment: CVA workup Consulting Provider: Max Coffman 06/15/24 11:32 Consult to Cardiology Stat Comment: new onset Afib with embolic infarcts Consulting Provider: Lizett Wilson Attending Provider on DC: Aureliano Cruz DO Discharging Provider: Gregory Thomas MD DS: Diagnosis Problem List Completed Was Problem List Reviewed/Reconciled?: Yes Hospital Course Hospital Course Hospital course: Hospital Course: Mr Paz is a 78 years old welsh speaking male patient with significant medical history for, NIDDM2, HLD, HTN and previous history of stroke (10 years ago), was admitted for left side weakness and left side facial droop. Head CT indicated 23 mm nonhemorrhagic infarct left posterior parietal lobe which may be acute nonhemorrhagic. CTA head/neck showed 10-30% stenosis of right carotid bifurcation, 40-60% stenosis left carotid artery bifurcation. Very atretic right vertebral artery with no large vessel occlusion. Repeat head CT reading indicated: Subtle 10 mm hemorrhage in the right occipital infarct described on the brain. Carotid Doppler was negative. NIHSS score was initially 5 per [facility], patient quickly became NIHSS 0 within 24 hours. Patient was started on Amiodarone 200mg BID, along with home Metoprolol tart 50mg BID. Per in house Neurology recommendations, patient was started on Eliquis 2.5 mg BID, followed by 24 hours observation. Repeat Head CT negative for any acute changes. Patient is safe to discharge. Problems on this admission: - New onset Atrial fibrllation with RVR - CVA - Hx HTN - HLD - Hx arthritis - Hx non insulin dependent T2DM Procedures: None Discharge instructions: - Follow up with PCP in 1 week form discharge. May call [facility] for primary care appointment. - Follow up with Neurology after discharge - Continue Amiodarone 200mg twcie a day + Eliquis 2.5 mg twice a day for A.Fib - Take Atorvastatin 40mg every night, per Neuro recommendations - Continue home medications Metoprolol Tart 50mg twice a day - Started Losartan 50mg daily for BP control. Continue hydrochlorothiazide home dose. PCP to re-evaluate. - Return to ED if symptoms worsen. We are grateful to be able to participate in Mr Paz's care. We wish him the best. - Gregory Thomas MD Status at Discharge Cognitive/behavioral status at discharge: Stable and returned to baseline Time Spent with Patient Time attestation: Total time spent providing and/or coordinating discharge services: More than 50% Home Health Home Health Referral Orders: 06/17/24 08:47 Home Health Referral Routine Reason For Exam: debility Home-Bound The patient must either because of illness or injury, need the aid of supportive devices such as crutches, canes, wheelchairs, and walkers; the use of special transportation; or the assistance of another person in order to leave their place of residence; OR have a condition such that leaving his or her home is medically contraindicated. In addition, the patient also meets the following criteria: patient is normally unable to leave the home and leaving home requires considerable taxing effort. Addendum to Home Health Certification Practitioner's Certification: I certify that the patient has been under my care in the hospital and the care of attending physician (see below). We had a lega-oh-ftwv encounter on (see date below). My clinical findings indicate that the patient is home bound per the above criteria and the Home Health Services noted in these orders are medically necessary. The primary reason for the nzrl-lq-bied encounter is related to the fact that the patient requires home health services. 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 Wound Care: No IV Therapy: No Discontinue PICC Line Once Treatment Complete: No RN Safety Evaluation: Yes RN to evaluate and create a plan of care that will produce positive outcomes. Palliative Treatment: No Palliative treatment and evaluate the need for hospice. Home Health Aide - Personal Care: No Home Health Aide to assist with any ADL's. 06/18/24 11:51 Home Health Referral Routine Reason For Exam: DEBILITY Home-Bound The patient must either because of illness or injury, need the aid of supportive devices such as crutches, canes, wheelchairs, and walkers; the use of special transportation; or the assistance of another person in order to leave their place of residence; OR have a condition such that leaving his or her home is medically contraindicated. In addition, the patient also meets the following criteria: patient is normally unable to leave the home and leaving home requires considerable taxing effort. Addendum to Home Health Certification Practitioner's Certification: I certify that the patient has been under my care in the hospital and the care of attending physician (see below). We had a mzlt-eb-bgcz encounter on (see date below). My clinical findings indicate that the patient is home bound per the above criteria and the Home Health Services noted in these orders are medically necessary. The primary reason for the yfnw-wl-milx encounter is related to the fact that the patient requires home health services. Date Certifying Phxc-tc-Rsow Physician Encounter: 06/14/24 Physician's Name who will Assume Oversight for HH Services: Physician No Primary/Family TRACK LAYING EQUIPMENT OPERATOR - Community Resources: No PT to Evaluate: Yes PT to evaluate and provide a treatmnet plan to increase patient's mobility and strength. Wound Care: No IV Therapy: No Discontinue PICC Line Once Treatment Complete: No RN Safety Evaluation: Yes RN to evaluate and create a plan of care that will produce positive outcomes. Palliative Treatment: No Palliative treatment and evaluate the need for hospice. Home Health Aide - Personal Care: No Home Health Aide to assist with any ADL's. Exam Vital Signs Temp Pulse Resp BP Pulse Ox O2 Del Method 98.2 F 85 16 138/63 H 95 Room Air 06/18/24 08:00 06/18/24 12:00 06/18/24 08:00 06/18/24 08:33 06/18/24 08:00 06/18/24 08:00 Narrative Exam Constitutional Alert, oriented x3 and comfortable HEENT Vision grossly intact. Patent nares. Trachea midline. Respiratory Chest normal on inspection and clear to auscultation bilaterally. Cardiovascular S1 and S2 audible, RRR. No murmurs or carotid bruit. No gross JVD. Abdominal Soft and non tender to palpation in all quadrants. BS + Genitourinary No bladder tenderness, no flank pain. Normal to palpation. Musculoskeletal Extremities tone within normal limits. No LE edema. Neurological CN II - XII grossly intact. Extremity motor and sensation grossly intact. Skin Warm, dry and intact. No apparent lesions. Psychiatric Patient has a good affect, is cooperative. Discharge Plan Plan Patient Disposition: Home w/HOME HEALTH Disposition Comment: Returned to baseline Patient condition on transfer: Stable Care Plan Goals: - Follow up with PCP in 1 week form discharge. May call [facility] for primary care appointment. - Follow up with Neurology after discharge - Continue Amiodarone 200mg twcie a day + Eliquis 2.5 mg twice a day for A.Fib - Take Atorvastatin 40mg every night, per Neuro recommendations - Continue home medications Metoprolol Tart 50mg twice a day - Started Losartan 50mg daily for BP control. Continue hydrochlorothiazide home dose. PCP to re-evaluate. - Return to ED if symptoms worsen. julia tosha con tam doctor primario entre 1 semana despues de dado de fito. [facility] julia tosha con neurologo despues de dado de fito continue amiodarone 200mg todas las noches, recomendaciones de neurologo continue medicamentos de casa metoprolol tart 50mg dos veces al deepak empezo losartan 50mg diarios para controlar presion, continue hydrochlorothiazide y tam doctor primario re evaluara regrese a la dahiana de emergencia si simptomas empioran Prescriptions/Referrals Prescriptions/Med Rec: New metformin 1,000 mg tablet extended release 24hr 1,000 mg PO BID 30 Days Qty: 60 0RF losartan 50 mg tablet 50 mg PO QDAY 30 Days Qty: 30 0RF amiodarone 200 mg tablet 200 mg PO BID 30 Days Qty: 60 0RF Eliquis 2.5 mg tablet 2.5 mg PO BID 30 Days Qty: 60 0RF Continued metoprolol tartrate 50 mg Tablet 50 mg PO QDAY hydrochlorothiazide 12.5 mg Tablet 12.5 mg PO QAM Changed atorvastatin 40 mg Tablet 40 mg PO HS 30 Days Qty: 30 0RF Discontinued metformin 850 mg Tablet 850 mg PO BID meloxicam 7.5 mg Tablet 7.5 mg PO QDAY Referrals: No Primary/Family,Physician [Primary Care Provider] - Max Coffman MD [Physician] - Gregory Thomas MD [Resident] - Patient/Caregiver Discharge Instructions Meds to Beds: Yes Discharge Activity: as per physical therapy and resume usual activities Education Materials: Low-Salt Choices, Discharge Instructions for Stroke, Stroke Prevention Activity Print Language: Filipino Stand Alone Forms: Cely Award Info., Patient Portal Info Letter Discharge Order Discharge Orders: Discharge (Routine); Ordered 06/18/24 Ordered By: Gregory Thomas Quality Discharge Quality Measures VTE prophylaxis MD Attestestation MD Attestation I have discussed and was present for the essential components of the discharge history, physical examination, diagnosis, and discharge treatment plan with the resident. I agree with the patient's discharge care as documented by the resident and amended herein by me. Fuentes Cruz DO. The patient understood all discharge instructions, all questions were answered satisfactorily. The patient was instructed to return to the Emergency Department is symptoms worsened or persisted. Although this document has been carefully reviewed, there may still be some phonetic and other typographical errors. These errors are purely grammatical due to imperfections in the software program and should not be construed in any way to compromise the substance of the patient's medical care during this visit.
[2024-06-18] MEDS: Magnesium Sulfate 2 GM Ivpb 2 GM/50 ML BAG IV (13:08)
--- NOTE | 2024-06-18 18:39 | PD.RESPRO ---
Documentation for date of: 06/18/24 Subjective Subjective Interval history: No overnight events, patient seen and examined, able to walk with cane, will benefit from walker assisstance. Safe and stable for discharge from neurology standpoint, follow up outpatient in Dr Coffman's office in 2 weeks Exam Vital Signs Temp Pulse Resp BP Pulse Ox O2 Del Method 96.8 F 66 16 147/60 H 94 L Room Air 06/18/24 12:00 06/18/24 12:00 06/18/24 12:06/18/24 12:00 06/18/24 12:00 06/18/24 12:00 Narrative Exam Constitutional Alert, oriented x3 and comfortable HEENT Vision grossly intact. Patent nares. Trachea midline. Respiratory Chest normal on inspection and clear to auscultation bilaterally. Cardiovascular S1 and S2 audible, RRR. No murmurs or carotid bruit. No gross JVD. Abdominal Soft and non tender to palpation in all quadrants. BS + Genitourinary No bladder tenderness, no flank pain. Normal to palpation. Musculoskeletal Extremities tone within normal limits. No LE edema. Neurological CN II - XII grossly intact. Extremity motor and sensation grossly intact. Skin Warm, dry and intact. No apparent lesions. Psychiatric Patient has a good affect, is cooperative. Objective Labs 06/18/24 05:33 06/18/24 05:33 Labs: Laboratory Results - last 24 hr 06/18/24 05:33 WBC 9.3 RBC 4.79 Hgb 13.3 L Hct 41.4 MCV 86 MCH 27.8 MCHC 32.1 RDW Std Deviation 48.4 H Plt Count 159 Neut % (Auto) 65 Lymph % (Auto) 23 [place] % (Auto) 9 Eos % (Auto) 3 Baso % (Auto) 1 Neut # (Auto) 6.0 Lymph # (Auto) 2.1 [place] # (Auto) 0.8 Eos # (Auto) 0.3 Baso # (Auto) 0.1 Immature Gran # (Auto) 0.02 H Absolute Nucleated RBC 0.00 Immature Gran % 0 Nucleated RBC % 0 Sodium 138 Potassium 4.5 D Chloride 105 Carbon Dioxide 22.6 Anion Gap 10 BUN 20 Creatinine 0.9 Estim Creat Clear Calc 56.8 L eGFR > 60 BUN/Creatinine Ratio 22 H Glucose 88 Calculated Osmolality 277 Calcium 9.2 Corrected Calcium 9.2 Magnesium 1.8 Total Bilirubin 0.7 AST 11 ALT 14 Alkaline Phosphatase 82 Total Protein 7.0 Albumin 4.3 Globulin 2.7 Albumin/Globulin Ratio 1.6 Quality Measures Quality Measures VTE prophylaxis Advance care planning discussed with:: patient Assessment & Plan Plan #Acute CVA -No focal neurological deficit noted on exam. -As the MRI brain and repeat CT head showed subtle hemorrhagic transformation, continue low-dose of Eliquis 2.5 mg twice a day -Follow up in office in 2 weeks -Continue with the blood pressure control and statin # Atrial fibrillation: -Rate controlled and on amiodarone Patient's care discussed with attending physician, Dr Meghna Moreno MD PGY3 Attending Provider Attestation/Addendum Patient was seen and examined at the bedside, agreed with resident's findings, assessment and mgt. stable for D/C on statin and Eliquis 2.5 mg bid, do a repeat CT before his FU in my office.
== END 2024-06-18 15:47 | disposition home health service (06) | DRG 45 ==
LOC: SERX 15:55 → SERHOLD 16:46 → S2NX 06-15 16:15 → S3NX 06-18 02:18
PROVIDERS: Student in an Organized Health Care Education/Training Program; Admitting Provider Student in an Organized Health Care Education/Training Program; Emergency Provider Registered Nurse General Practice; Visit Provider Student in an Organized Health Care Education/Training Program
DX: I63.432 Cerebral infarction due to embolism of left posterior cerebral artery (principal); I61.1 Nontraumatic intracerebral hemorrhage in hemisphere, cortical; R29.810 Facial weakness; R13.10 Dysphagia, unspecified; I10 Essential (primary) hypertension; R29.6 Repeated falls; S00.10XA Contusion of unspecified eyelid and periocular area, initial encounter; G81.94 Hemiplegia, unspecified affecting left nondominant side; M19.90 Unspecified osteoarthritis, unspecified site; E11.9 Type 2 diabetes mellitus without complications; E78.00 Pure hypercholesterolemia, unspecified; I48.0 Paroxysmal atrial fibrillation; Z86.73 Personal history of transient ischemic attack (TIA), and cerebral infarction without residual deficits; Z79.84 Long term (current) use of oral hypoglycemic drugs; R29.705 NIHSS score 5; R29.700 NIHSS score 0; Z79.01 Long term (current) use of anticoagulants; Z79.899 Other long term (current) drug therapy; W19.XXXA Unspecified fall, initial encounter
CPT/HCPCS: 36415; 70450; 70496; 70498; 70544; 80053; 80061; 80307; 81001; 83036; 83735; 84100; 84439; 84443; 84484; 84703; 85025; 85610; 85730; 87086; 92610; 93005; 93306; 93880; 96360; 96361; 96365; 96366; 96372; 97162; 99285; A4649; J0283; J1815; J3475; J3490; J7030; Q9967; A9270

== ENCOUNTER 2024-06-29 12:38 | Emergency (ER) | payer MEDICAID, SELFPAY ==
[2024-06-29 12:51] VITALS: BP 193/74; PULSE 61; RESP 18; TEMP 36.7; O2SAT 96; BMI 28.8
--- NOTE | 2024-06-29 12:56 | PD.EDRME ---
Rapid Medical Screening Exam RME Arrival date/time: 06/29/24 12:38 79-year-old male with a history of hypertension tension, hyperlipidemia, type 2 diabetes, and a recent CVA presents to the emergency room with a chief complaint of lightheadedness, dizziness and feeling like he is going to faint. Patient states that he was called by his primary care provider and told to come to the emergency room but during assessment he states that it is to get a x-ray but does not know anything else. I have greeted and performed a focused initial assessment of this patient. A comprehensive ED assessment and evaluation of the patient, analysis of all test results, and completion of the medical decision making process will be conducted by additional ED providers. Chief Complaint: General Adult/Misc Complain Vital signs: Vital Signs Temperature 98.0 F 06/29/24 12:51 Pulse Rate 61 06/29/24 12:51 Respiratory Rate 18 06/29/24 12:51 Blood Pressure 193/74 H 06/29/24 12:51 Pulse Oximetry (%) 96 06/29/24 12:51 Oxygen Delivery Method Room Air 06/29/24 12:51 Vital signs reviewed by provider: Yes
[2024-06-29 14:16] LABS: Collection Type, Urine Clean Catch; Squamous Epithelial Cell,Urine 0 /hpf (0-5)
[2024-06-29 14:21] LABS: Bilirubin,Urine Negative (Negative); Blood,Urine Negative (Negative); Clarity,Urine Clear (Clear/Hazy); Color,Urine Lt-Yellow (Lt Yel-Yel); Glucose, Urine Negative (Negative); Ketones,Urine Negative (Negative); Leukocyte Esterase,Urine Negative (Negative); Nitrite,Urine Negative (Negative); PH,Urine 6.5 (5.0-7.0); Protein,Urine Trace (Neg - Trace); RBC,Urine 3 /hpf (0-3); Specific Gravity,Urine 1.019 (1.001-1.035); Urobilinogen,Urine Negative mg/dL (0.0-1.0); WBC,Urine 1 /hpf (0-5)
[2024-06-29 14:22] LABS: Basophils # (Auto) 0.1 Thou/mm3 (0.0-0.2); Basophils % (Auto) 1 % (0-2.5); Eosinophils # (Auto) 0.1 Thou/mm3 (0.0-0.5); Eosinophils % (Auto) 1 % (0-10); Hematocrit 38.5 % (41.0-53.0); Hemoglobin 12.3 g/dL (13.5-16.0); Immature Granulocytes % (Auto) 0 % (0-0); Immature Granulocytes Auto 0.02 Thou/mm3 (0.00-0.00); Lymphocytes # (Auto) 1.4 Thou/mm3 (1.0-4.8); Lymphocytes % (Auto) 18 % (10-50); Mean Corpuscular HGB Conc 31.9 g/dl (31.0-37.0); Mean Corpuscular Hemoglobin 27.7 pg (25.0-35.0); Mean Corpuscular Volume 87 fL (80-100); Monocytes # (Auto) 0.6 Thou/mm3 (0.0-0.8); Monocytes % (Auto) 7 % (0-12); Neutrophils # (Auto) 5.7 Thou/mm3 (1.8-7.7); Neutrophils % (Auto) 73 % (37-80); Nucleated Red Blood Cell % 0 /100 WBC (0); Platelet Count 227 Thou/mm3 (140-440); RDW Standard Deviation 47.8 fL (35.1-43.9); Red Blood Count 4.44 Miln/mm3 (4.50-5.90); White Blood Count 7.8 Thou/mm3 (3.8-10.6)
[2024-06-29 14:37] LABS: INR 1.1 (0.9-1.3); Partial Thromboplastin Time 31.9 Seconds (22.0-36.0); Prothrombin Time 11.8 Seconds (9.0-12.2)
[2024-06-29 14:41] LABS: Troponin I < 0.020 ng/mL (0.0-0.045)
[2024-06-29 14:42] LABS: Alanine Aminotransferase 10 U/L (10-49); Albumin, Serum 4.4 gm/dL (3.4-4.8); Albumin/Globulin Ratio 1.5 (1.2-2.2); Alkaline Phosphatase 79 U/L (46-116); Anion Gap 11 (7-16); Aspartate Amino Transferase 23 U/L (0-34); BUN/Creatinine Ratio 22 Ratio (12-20); Bilirubin,Total 0.5 mg/dL (0.3-1.2); Blood Urea Nitrogen 22 mg/dL (9-23); Calcium 9.9 mg/dL (8.3-10.6); Calcium (Corrected) 9.9 mg/dL (8.5-10.1); Carbon Dioxide 25.2 mMol/L (20.0-31.0); Chloride 105 mMol/L (98-107); Estimated Creatinine Clearance 48.4 mL/min (>60); Globulin 2.9 gm/dL (2.3-3.5); Glucose 108 mg/dL (74-106); Magnesium 1.4 mg/dL (1.6-2.6); Osmolality,Calculated 285 (275-295); Potassium 4.3 mMol/L (3.4-5.1); Sodium 141 mMol/L (136-145); Total Protein 7.3 gm/dL (5.7-8.2); eGFR > 60 See Note
[2024-06-29 14:45] LABS: B-Type Natriuretic Peptide 370 pg/mL (0-100)
--- NOTE | 2024-06-29 15:40 | PD.EDADULT ---
ED General RME/HPI General Chief complaint: General Adult/Misc Complain Stated complaint: was told to come to er to get xrays, Arrival date/time: 06/29/24 12:38 RME / HPI RME / HPI narrative: 06/29/24 12:38 79-year-old male with a history of hypertension tension, hyperlipidemia, type 2 diabetes, and a recent CVA presents to the emergency room with a chief complaint of lightheadedness, dizziness and feeling like he is going to faint. Patient states that he was called by his primary care provider and told to come to the emergency room but during assessment he states that it is to get a x-ray but does not know anything else. I have greeted and performed a focused initial assessment of this patient. A comprehensive ED assessment and evaluation of the patient, analysis of all test results, and completion of the medical decision making process will be conducted by additional ED providers. This section includes all my notes and documentations, including HPI, PE, and ED course. Fran Perez MD HPI: 79-year-old male here because someone called him to be seen. But he doesn't know exactly who called. He was discharged from here after hospitalization about 10 days ago, on 06/18/2025. He had a small stroke. He had no deficits at discharge. He reports no headache or dizziness. No speech or visual impairment. No facial droop. No loss of power in the arms or legs. No numbness or tingling. No chest pain or shortness of breath. No other complaints. ROS: All negative except as documented in HPI. Physical Exam: General: Alert and oriented. No acute distress. Eyes: Conjunctivae and lids clear. EOMI. PERRL. ENT: No nasal congestion. Neck: Supple. No carotid bruit. No JVD. Heart: RRR. Lungs: No respiratory distress. Good air movement. No rhonchi, wheezing, rales. Skin: Warm and dry. Neuro: Alert and oriented X 3. Cranial Nerves II-XII grossly intact. No peripheral motor deficits. I reviewed all diagnostic test results. Blood tests and urine tests unremarkable except Mg 1.4. Treatment here included MgSO4 2 gram IM. He remained stable. Recommended more outpatient care. Based on my best medical judgment, made decision no further evaluation or treatment indicated at this time. Patient understands and agrees to the discharge instructions customized and printed, see below. Discharge Instructions from Dr. Perez printed for you: 1. You had a stroke recently last month in May. 2. Fortunately, you don't have any deficits from the stroke (such as paralysis or speech problem), including today. 3. Follow all the instructions given to you when you were discharged from this hospital on 06/18/2024, including all the medications prescribed. 4. See your doctor outside the ER on 06/30/2024 for recheck and further care. Ask to review all test results and official radiology reports, to make sure you receive all necessary follow-ups and monitoring, including magnesium level which was very low today. Ask for help to see neurologist as soon as possible. 5. Seek immediate medical care with speech problems or weakness in your arms or legs or with any concerns or with any concerns. Instrucciones de fito del Dr. Perez impresas para usted: 1. Sufri? un derrame cerebral recientemente el mes pasado en diciembre. 2. Afortunadamente, no tiene elvira?n d?ficit a causa del derrame cerebral (sidra par?lisis o problemas del habla), incluso hoy. 3. Siga todas las instrucciones que le dieron cuando le dieron el [facility] el 18[facility]06[facility]2024, incluidos todos los medicamentos recetados. 4. Visite a tam m?dico fuera de la dahiana de emergencias el 01/21/2025 para volver a controlarlo y recibir m?s atenci?n. Pida que revisen todos los resultados de las pruebas y los informes oficiales de radiolog?a, para asegurarse de recibir todos los seguimientos y controles necesarios, incluido el nivel de magnesio, que estaba muy bajo hoy. Pida ayuda para albert a un neur?logo lo antes posible. 5. Busque atenci?n m?dica inmediata si tiene problemas del habla o debilidad en los brazos o las piernas o si tiene alguna inquietud. Related Data Home Medications ?Medication ?Instructions ?Recorded ?Confirmed hydrochlorothiazide 12.5 mg tablet 12.5 mg PO QAM 06/15/24 06/15/24 metoprolol tartrate 50 mg tablet 50 mg PO QDAY 06/15/24 06/15/24 Previous Rx's ?Medication ?Instructions ?Recorded amiodarone 200 mg tablet 200 mg PO BID 1 month #60 tabs 06/18/24 apixaban 2.5 mg tablet (Eliquis) 2.5 mg PO BID 1 month #60 tabs 06/18/24 atorvastatin 40 mg tablet 40 mg PO HS 1 month #30 tabs 06/18/24 losartan 50 mg tablet 50 mg PO QDAY 1 month #30 tabs 06/18/24 metformin 1,000 mg tablet,extended 1,000 mg PO BID 1 month #60 tabs 06/18/24 release 24hr (osmotic) Allergies Allergy/AdvReac Type Severity Reaction Status Date / Time No Known Allergies Allergy Verified 06/29/24 12:42 Course Quality Measures none Orders Category Date Time Status EKG (ED ONLY) *Do not use* NOW Care 06/29/24 12:56 Completed EKG (ED Only) Stat Exams 06/29/24 12:56 Ordered B-Type Natriuretic Peptide Stat Lab 06/29/24 13:41 Completed CBC Stat Lab 06/29/24 13:41 Completed Comprehensive Metabolic Panel Stat Lab 06/29/24 13:41 Completed Magnesium Stat Lab 06/29/24 13:41 Completed Partial Thromboplastin Time Stat Lab 06/29/24 13:56 Completed Prothrombin Time with INR Stat Lab 06/29/24 13:56 Completed Troponin I Stat Lab 06/29/24 13:41 Completed Urinalysis Stat Lab 06/29/24 13:55 Completed Magnesium Sulf 50% Inj (gm) Med 06/29/24 15:20 Discontinued 2 gm IM X1 ONE Vital Signs Vital signs: Vital Signs Temperature 98.0 F 06/29/24 12:51 Pulse Rate 61 06/29/24 12:51 Respiratory Rate 18 06/29/24 12:51 Blood Pressure 193/74 H 06/29/24 12:51 Pulse Oximetry (%) 96 06/29/24 12:51 Oxygen Delivery Method Room Air 06/29/24 12:51 MDM Patient data External records reviewed:: [facility] previous records Clinical information provided by:: patient Social determinants that could affect healthcare access:: none Patient has the following chronic illnesses:: Recent CVA How is presenting disease/condition affected by chronic disease/condition?: uneffected by Evaluation data The following diagnostics were reviewed and interpreted by me:: lab results Lab and/or radiology exams considered but not ordered:: None Interpretation Summary: Hypomagnesemia Medications Medications considered but not ordered:: None Medication administrations:: Medication Administration History Discontinued Medications Magnesium Sulfate (Magnesium Sulf 0.5 Gm/Ml Vial 2 Ml) 2 gm IM X1 ONE Stop: 06/29/24 15:21 MgSO4 2 gram IM Consultations Consultation(s) initiated? (list below): No Diagnosis Differential Diagnosis ED Complaint MDM: CVA, electrolyte abnormalities Most likely diagnosis given after review of the tests above:: Hypomagnesemia Admission Indicated Admission indicated?: not indicated Explain why admission is indicated or not indicated:: Admission criteria not met Admission Request Was there a request for admission?: No Disposition Plan Disposition Plan: Discharge Discharge Attestation Discharge Attestation: The patient and all family members were given an opportunity to ask questions and understood the discharge instructions. Discharge instructions specifically effects, indications for sooner follow up or return to the emergency department, and the expected course of current diagnosis. Patient condition: Stable Medical Decision Making Differential Diagnosis Differential Diagnosis: CVA, electrolyte abnormalities Lab Data 06/29/24 13:41 06/29/24 13:41 Labs: Lab Results 06/29/24 06/29/24 06/29/24 Range/Units 13:41 13:55 13:56 WBC 7.8 (3.8-10.6) Thou/mm3 RBC 4.44 L (4.50-5.90) Miln/mm3 Hgb 12.3 L (13.5-16.0) g/dL Hct 38.5 L (41.0-53.0) % MCV 87 (80-100) fL MCH 27.7 (25.0-35.0) pg MCHC 31.9 (31.0-37.0) g/dl RDW Std Deviation 47.8 H (35.1-43.9) fL Plt Count 227 D (140-440) Thou/mm3 Neut % (Auto) 73 (37-80) % Lymph % (Auto) 18 (10-50) % [place] % (Auto) 7 (0-12) % Eos % (Auto) 1 (0-10) % Baso % (Auto) 1 (0-2.5) % Neut # (Auto) 5.7 (1.8-7.7) Thou/mm3 Lymph # (Auto) 1.4 (1.0-4.8) Thou/mm3 [place] # (Auto) 0.6 (0.0-0.8) Thou/mm3 Eos # (Auto) 0.1 (0.0-0.5) Thou/mm3 Baso # (Auto) 0.1 (0.0-0.2) Thou/mm3 Immature Gran # (Auto) 0.02 H (0.00-0.00) Thou/mm3 Absolute Nucleated RBC 0.00 (0.00-0.00) Thou/mm3 Immature Gran % 0 (0-0) % Nucleated RBC % 0 (0) /100 WBC PT 11.8 (9.0-12.2) Seconds INR 1.1 (0.9-1.3) APTT 31.9 (22.0-36.0) Seconds Sodium 141 (136-145) mMol/L Potassium 4.3 (3.4-5.1) mMol/L Chloride 105 (98-107) mMol/L Carbon Dioxide 25.2 (20.0-31.0) mMol/L Anion Gap 11 (7-16) BUN 22 (9-23) mg/dL Creatinine 1.0 (0.6-1.3) mg/dL Estim Creat Clear Calc 48.4 L (>60) mL/min eGFR > 60 (60 - ) See Note BUN/Creatinine Ratio 22 H (12-20) Ratio Glucose 108 H (74-106) mg/dL Calculated Osmolality 285 (275-295) Calcium 9.9 (8.3-10.6) mg/dL Corrected Calcium 9.9 (8.5-10.1) mg/dL Magnesium 1.4 L (1.6-2.6) mg/dL Total Bilirubin 0.5 (0.3-1.2) mg/dL AST 23 (0-34) U/L ALT 10 (10-49) U/L Alkaline Phosphatase 79 (46-116) U/L Troponin I < 0.020 (0.0-0.045) ng/mL B-Natriuretic Peptide 370 H (0-100) pg/mL Total Protein 7.3 (5.7-8.2) gm/dL Albumin 4.4 (3.4-4.8) gm/dL Globulin 2.9 (2.3-3.5) gm/dL Albumin/Globulin Ratio 1.5 (1.2-2.2) Ur Collection Type Clean Catch Urine Color Lt-Yellow (Lt Yel-Yel) Urine Clarity Clear (Clear/Hazy) Urine pH 6.5 (5.0-7.0) Ur Specific [place] 1.019 (1.001-1.035) Urine Protein Trace (Neg - Trace) Urine Glucose (UA) Negative (Negative) Urine Ketones Negative (Negative) Urine Blood Negative (Negative) Urine Nitrite Negative (Negative) Urine Bilirubin Negative (Negative) Urine Urobilinogen (Auto) Negative (0.0-1.0) mg/dL Ur Leukocyte Esterase Negative (Negative) Urine RBC 3 (0-3) /hpf Urine WBC 1 (0-5) /hpf Ur Squamous Epith Cells 0 (0-5) /hpf Urine Bacteria None (None) Discharge Plan Plan Patient Disposition: HOME (Self Care) Prescriptions/Referrals Prescriptions/Med Rec: No Action metoprolol tartrate 50 mg Tablet 50 mg PO QDAY hydrochlorothiazide 12.5 mg Tablet 12.5 mg PO QAM metformin 1,000 mg tablet extended release 24hr 1,000 mg PO BID 30 Days Qty: 60 0RF losartan 50 mg tablet 50 mg PO QDAY 30 Days Qty: 30 0RF amiodarone 200 mg tablet 200 mg PO BID 30 Days Qty: 60 0RF Eliquis 2.5 mg tablet 2.5 mg PO BID 30 Days Qty: 60 0RF atorvastatin 40 mg Tablet 40 mg PO HS 30 Days Qty: 30 0RF Referrals: Luis Keenan MD [Primary Care Provider] - In 1 week Problem List Clinical Impression: Stroke Patient/Caregiver Discharge Instructions Discharge Activity: activity as tolerated Education Materials: ED Stroke, Completed Additional Instructions: Discharge Instructions from Dr. Perez printed for you: 1. You had a stroke recently last month in May. 2. Fortunately, you don't have any deficits from the stroke (such as paralysis or speech problem), including today. 3. Follow all the instructions given to you when you were discharged from this hospital on 06/18/2024, including all the medications prescribed. 4. See your doctor outside the ER on 06/30/2024 for recheck and further care. Ask to review all test results and official radiology reports, to make sure you receive all necessary follow-ups and monitoring, including magnesium level which was very low today. Ask for help to see neurologist as soon as possible. 5. Seek immediate medical care with speech problems or weakness in your arms or legs or with any concerns or with any concerns. Instrucciones de fito del Dr. Perez impresas para usted: 1. Sufri? un derrame cerebral recientemente el mes pasado en diciembre. 2. Afortunadamente, no tiene elvira?n d?ficit a causa del derrame cerebral (sidra par?lisis o problemas del habla), incluso hoashish. 3. Siga todas las instrucciones que le dieron cuando le dieron el [facility] el 18/06/2024, incluidos todos los medicamentos recetados. 4. Visite a tam m?dico fuera de la dahiana de emergencias el 01/21/2025 para volver a controlarlo y recibir m?s atenci?n. Pida que revisen todos los resultados de las pruebas y los informes oficiales de radiolog?a, para asegurarse de recibir todos los seguimientos y controles necesarios, incluido el nivel de magnesio, que estaba muy bajo hoy. Pida ayuda para albert a un neur?logo lo antes posible. 5. Busque atenci?n m?dica inmediata si tiene problemas del habla o debilidad en los brazos o las piernas o si tiene alguna inquietud. Print Language: Faroese Stand Alone Forms: [employer] Info., Patient Portal Info Letter
== END 2024-06-29 16:02 | disposition home or self-care (01) ==
PROVIDERS: Nurse Practitioner Family; Emergency Provider Emergency Medicine; PCP Family Medicine
DX: R42 Dizziness and giddiness (principal); Z86.73 Personal history of transient ischemic attack (TIA), and cerebral infarction without residual deficits; E78.5 Hyperlipidemia, unspecified; I10 Essential (primary) hypertension; E11.9 Type 2 diabetes mellitus without complications
CPT/HCPCS: 36415; 80053; 81001; 83735; 83880; 84484; 85025; 85610; 85730; 93005; 99283

== ENCOUNTER 2025-02-01 13:19 | Outpatient (AMB) | payer MEDICAID, SELFPAY ==
[2025-02-01 13:47] VITALS: BP 184/70; PULSE 63; RESP 18; TEMP 36.2; O2SAT 98; BMI 26.1
--- NOTE | 2025-02-01 13:47 | ORTHONT_ITS ---
Vital signs 02/01/25 13:47 Height 1.6 m Height Method Measured Weight 66.848 kg Weight Measurement Method Standing Scale BMI 26.1 BP 184/70 H Blood Pressure Source Automatic Cuff Blood Pressure Location Left Upper Arm Position Sitting Respiration 18 Pulse 63 Pulse Source Monitor Temp 97.1 F Temp Source Temporal Artery Scan Pulse Oximetry (%) 98 Oxygen Delivery Method Room Air Med/Allergies Allergies & Medications Allergies No Known Allergies Allergy (Verified 02/01/25 13:48) Medication Reconciliation hydrochlorothiazide 12.5 mg tablet 12.5 mg PO QAM 06/15/24 [History Confirmed 02/01/25] metoprolol tartrate 50 mg tablet 50 mg PO QDAY 06/15/24 [History Confirmed 02/01/25] atorvastatin 40 mg tablet 40 mg PO HS 1 month #30 tabs 06/18/24 [Rx Confirmed 02/01/25] Exam Exam Patient is in no acute distress and is cooperative with the examination today. Breathing is nonlabored. In no respiratory distress. Bilateral extremities were evaluated and demonstrates sensation intact to light touch. Palpable pedal pulses are present. No significant edema is present. Bilateral hips were examined. The patient has no pain with log roll of the hips. Internal rotation to 30 degrees and external rotation to 30 degrees is painless. Negative FADIR. The left knee was examined. The left knee is in varus alignment. Range of motion from 0-115 degrees. Knee is stable to varus and valgus as well as AP translation with <5mm. Patient has a negative [place]. There is no pain with patellofemoral compression and no crepitus noted. The knee is tender to palpation medially. The right knee was also examined. The right knee is in varus alignment. Range of motion from 0-120 degrees. Knee is stable to varus and valgus as well as AP translation with <5mm. Patient has a negative [place]. There is no pain with patellofemoral compression and no crepitus noted. The knee is tender to palpation medially. X-rays demonstrate complete joint space narrowing bilaterally with both medial and lateral arthritis and complete joint space narrowing Assessment and Plan Problem List (1) Degenerative arthritis of knee, bilateral: Status: Acute Plan: Patient is a pleasant 79-year-old male with bilateral knee pain and bilateral knee arthritis. His significant medical committees including prior stroke. I would like for his family member to be here if we were to discuss surgery as there may be some baseline dementia for him. We used a system controller for the entirety of the visit. We will start with cortisone injections today Recommend knee cortisone injection as patient would like to proceed with conservative treatment at this time. The risks and benefits of the procedure were reviewed with the patient and patient gave verbal consent to continue with the procedure. Procedure: performed by Dr. Martinez Using sterile technique the Right knee was thoroughly prepped with alcohol, and approximately 1 cc of Depo-Medrol 80mg/mL and 4 cc of 0.2% ropivacaine was injected without resistance into the medial tibial femoral joint space. The patient tolerated the procedure. Recommend knee cortisone injection as patient would like to proceed with conserv ative treatment at this time. The risks and benefits of the procedure were reviewed with the patient and patient gave verbal consent to continue with the procedure. Procedure: performed by Dr. Martinez Using sterile technique the left knee was thoroughly prepped with alcohol, and approximately 1 cc of Depo-Medrol 80mg/mL and 4 cc of 0.2% ropivacaine was injected without resistance into the medial tibial femoral joint space. The patient tolerated the procedure. Office Procedures GNS Level of Care Nursing/Assessment Patient Status: Initial/New Patient Nursing Assessment/Reassesment: Medication Reconciliation, Update PMH in EMR and Vital Signs Coordination of Care: Complex Care and Chronic Disease 1-5, Education Complex Pt/Fam, Consent,records obtained, informed consent, 1 Ins Authorization, Lab and Imaging orders, Results/Orders obtained and Staff clarify orders Special Needs: Language special needs New Patient Charge New Patient Point Assignment: [id number] New Patient Point Charge: ORTHODONTIC LAB TECHNICIAN Level 3 (5152-5889) Surgical Proc/IM SQ injection Major Surgical Procedure: Yes (BILATERAL KNEE INJECTION) Medication Given Medication Given Medication Given: Yes Documented Dose Given: 1 Route: Infiitration Medication Given Medication Given Medication Given: Yes Documented Dose Given: 1 Route: Infiitration Medication Given Medication Given Medication Given: Yes Documented Dose Given: 4 Route: Infiitration Medication Given Medication Given Medication Given: Yes Documented Dose Given: 4 Route: Infiitration Office Meds methylprednisolone acetate 80 mg/mL suspension for injection Performing Provider: Juan Martinez MD Performing Location: [facility] Administered by: Juan Martinez MD on 02/01/25 14:05 Dose Route Admin Location Dispensed Lot Number Expiration Date [facility] [employer] 80 mg intra-articular 1 mL [id number] 11/19/26 [address]-6 [employer] methylprednisolone acetate 80 mg/mL suspension for injection Performing Provider: Juan Martinez MD Performing Location: [facility] Administered by: Juan Martinez MD on 02/01/25 14:05 Dose Route Admin Location Dispensed Lot Number Expiration Date [facility] [employer] 80 mg intra-articular 1 mL [id number] 11/19/26 [address]-4 [employer] ropivacaine (PF) 2 mg/mL (0.2 %) injection solution Performing Provider: Juan Martinez MD Performing Location: [facility] Administered by: Juan Martinez MD on 02/01/25 14:05 Dose Route Admin Location Dispensed Lot Number Expiration Date [place] [employer] 20 mL Infiltration 20 mL [id number] 04/21/26 02570-247-28 [facility] ropivacaine (PF) 2 mg/mL (0.2 %) injection solution Performing Provider: Juan Martinez MD Performing Location: [facility] Administered by: Juan Martinez MD on 02/01/25 14:05 Dose Route Admin Location Dispensed Lot Number Expiration Date [facility] [employer] 20 mL Infiltration 20 mL [id number] 04/21/26 86680-469-91 [facility] [place] Intake Visit Data Collection New Patient or Established: New Patient (never been to [facility]) Reason for Visit:: BILATERAL KNEE PAIN Seen by Clinical Staff ONLY (RN/MA): No Organic Chemistry Teacher Required: Yes PCP or OBGYN visit in last 3 months: Yes Hx Now: No Do You Feel Safe at Home: Yes Authorities Contacted: N/A Questionairres Past Medical History Past Medical History Have you ever been diagnosed with any of the following: Cardiology Problems Congestive Heart Failure: No Hypertension: Yes Respiratory Problems Chronic Obstructive Pulmonary Disease (COPD): No Genital/Urinary Problems Renal Disease: No Endocrine Problems Diabetes Mellitus Type 1: No Diabetes Mellitus Type 2: Yes Other Problems Cancer: No Subjective Visit Visit for: new patient and knee Immunization / Flu Flu Vaccine in the Last 12 Months: Yes Flu Vaccine Exclusion Criteria: Already Received History of Present Illness Chief complaint: BILATERAL KNEE PAIN Date of injury / onset of symptoms: 1 YEAR Patient Is a pleasant 79-year-old male with bilateral knee pain. Has been bothering him for greater than a year. He has not had any significant conservative treatment. He has not had any injections of like that today. Personal History Occupation: RETIRED Red flag PMH: none BMI Counceling provided: Yes Pain Pain level (0-10): 5 Pain location: anterior Pain quality: aching Pain timing: increases with activity Associated signs & symptoms: none Ambulatory data Ambulatory device: cane Treatments Number of previous injections: 0 Improvement with previous injections: No Number of Physical Therapy sessions: 0 Improvement with PT: No Improvement with NSAIDS: no Review of Systems Review of Systems: All systems negative unless otherwise noted in HPI.
== END 2025-02-01 14:25 | disposition home or self-care (01) ==
LOC: HODSRG 13:19
PROVIDERS: PCP Family Medicine; Referring Provider Family Medicine; Supervising Provider Orthopaedic Surgery Adult Reconstructive Orthopaedic Surgery; Visit Provider Orthopaedic Surgery Adult Reconstructive Orthopaedic Surgery
DX: M17.0 Bilateral primary osteoarthritis of knee (principal); M25.562 Pain in left knee; M25.561 Pain in right knee; I10 Essential (primary) hypertension; E11.9 Type 2 diabetes mellitus without complications
CPT/HCPCS: 20610; 99203; J1010; J2795; G0463

== ENCOUNTER 2025-05-06 01:19 | Emergency (ER) | payer MEDICAID, SELFPAY ==
[2025-05-06 01:29] VITALS: BP 203/66; PULSE 67; RESP 18; TEMP 37; O2SAT 97; BMI 23.3
[2025-05-06] MEDS: HYDROcodone/APAP 5/325 TABLET 1 TAB PO (01:43)
[2025-05-06] MEDS: DEXAMETHASONE SOD PHOS INJ 10 MG/ML VIAL PO (01:43)
--- NOTE | 2025-05-06 01:48 | PD.EDEXREM ---
ED Extremity Problem RME/HPI General Chief complaint: Extremity Injury, Upper Stated complaint: RIGHT HAND PAIN Time Seen by Provider: 05/06/25 01:38 Arrival date/time: 05/06/25 01:19 79M with history of afib, CVA, DM, and unspecified arthritis presents to ED with 1 day of R wrist swelling and pain w/o fall/trauma. Limitations: no limitations Related Data Home Medications ?Medication ?Instructions ?Recorded ?Confirmed hydrochlorothiazide 12.5 mg tablet 12.5 mg PO QAM 06/15/24 02/01/25 metoprolol tartrate 50 mg tablet 50 mg PO QDAY 06/15/24 02/01/25 Previous Rx's ?Medication ?Instructions ?Recorded atorvastatin 40 mg tablet 40 mg PO HS 1 month #30 tabs 06/18/24 Allergies Allergy/AdvReac Type Severity Reaction Status Date / Time No Known Allergies Allergy Verified 05/06/25 01:22 Review of Systems Review of Systems Systems Reviewed: All systems reviewed, normal except as documented Musculoskeletal Musculoskeletal: Reports as per HPI and Reports arthralgias Past Medical History Past Medical History CARDIAC: Positive Hypertension; Negative Congestive Heart Failure RESPIRATORY: Negative Chronic Obstructive Pulmonary Disease (COPD) GENITOURINARY: Negative Renal Disease ENDOCRINE: Positive Diabetes Mellitus Type 2; Negative Diabetes Mellitus Type 1 OTHER HISTORY: Negative Cancer Family History FAMILY HISTORY: Negative Family Cardiac Disorders or Family Cancer Social History SMOKING STATUS: Never smoker ED Exam General Limitations: Present no limitations General appearance: Present alert and in no apparent distress Head Head exam: Present atraumatic Neck Neck exam: Present normal inspection, full ROM and trachea midline Chest Chest inspection: Present normal inspection and symmetric chest wall rise Expanded Upper Extremity Exam Forearm/Wrist exam: Present tenderness (R) and swelling; Absent erythema Neurological Exam Neurological exam: Present alert and oriented X3 Psychiatric Psychiatric exam: Present normal affect and normal mood Skin Skin exam: Present warm, dry, intact and normal color Course Quality Measures none Orders Category Date Time Status Dexamethasone Inj [Decadron Inj] Med 05/06/25 01:38 Discontinued 10 mg PO X1 ONE HYDROcodone*/APAP 5/325 [[place] 5/325] Med 05/06/25 01:38 Discontinued 1 tab PO X1 ONE Vital Signs Vital signs: Vital Signs Temperature 98.6 F 05/06/25 01:29 Pulse Rate 67 05/06/25 01:29 Respiratory Rate 18 05/06/25 01:29 Blood Pressure 203/66 H 05/06/25 01:29 Pulse Oximetry (%) 97 05/06/25 01:29 Oxygen Delivery Method Room Air 05/06/25 01:29 O2 at 97% on RA and WNLs Extremity Problem MDM Narrative MDM Narrative:: 79M with history of afib, CVA, DM, and unspecified arthritis presents to ED with 1 day of R wrist swelling and pain w/o fall/trauma. Physical exam reveals R wrist swelling and tenderness with limited ROM. No redness. Patient is afebrile, calm, and alert. Meds and youth counselor given. Patient data External records reviewed:: [facility] previous records Clinical information provided by:: patient Social determinants that could affect healthcare access:: none Patient has the following chronic illnesses:: afib, CVA, DM, and unspecified arthritis How is presenting disease/condition affected by chronic disease/condition?: exacerbated by Evaluation data The following diagnostics were reviewed and interpreted by me:: other (specify) (none) Lab and/or radiology exams considered but not ordered:: not ordered Interpretation Summary: n/a Medications / Prescriptions Medications or Prescriptions considered but not ordered:: ordered Medication administrations:: Medication Administration History Discontinued Medications Hydrocodone Bitart/Acetaminophen (Hydrocodone/Apap 5/325 Tablet) 1 tab PO X1 ONE Stop: 05/06/25 01:39 Last Admin: 05/06/25 01:43 Dose: 1 tab Documented By: RACHID Dexamethasone Sodium Phosphate (Dexamethasone Sod Phos Inj 10 Mg/Ml Vial) 10 mg PO X1 ONE Stop: 05/06/25 01:39 Last Admin: 05/06/25 01:43 Dose: 10 mg Documented By: RACHID above Consultations Consultation(s) initiated? (list below): No Diagnosis Extremity Problem Differential Diagnosis: herpes zoster, gout, cellulitis, superficial thrombophlebitis, deep venous thrombosis of upper extremity, lower extremity edema, deep vein thrombosis of lower extremity and other (septic arthritis, joint pain) Most likely diagnosis given after review of the tests above:: joint pain Admission Indicated Admission indicated?: not indicated Admission Request Was there a request for admission?: No Disposition Plan Disposition Plan: Discharge Discharge Attestation Discharge Attestation: The patient and all family members were given an opportunity to ask questions and understood the discharge instructions. Discharge instructions specifically effects, indications for sooner follow up or return to the emergency department, and the expected course of current diagnosis. Patient condition: Stable Discharge Plan Plan Patient Disposition: HOME (Self Care) Discharge Disposition comment: Stable Prescriptions/Referrals Prescriptions/Med Rec: No Action metoprolol tartrate 50 mg Tablet 50 mg PO QDAY hydrochlorothiazide 12.5 mg Tablet 12.5 mg PO QAM atorvastatin 40 mg Tablet 40 mg PO HS 30 Days Qty: 30 0RF Problem List Clinical Impression: Joint pain Patient/Caregiver Discharge Instructions Education Materials: ED Arthralgia Additional Instructions: Please follow-up with PCP within 24-48 hours and return immediately if symptoms worsen. If problem persists, recommend outpatient PT and/or MRI follow-up. In the meantime, rest, use ice/heat, and/or compression. Return if fever or redness of skin. Print Language: Korean Stand Alone Forms: Patient Portal Info Letter PA/JACQUARD CARD CUTTER Supervising Physician MARIAH/JENNIFER Supervising Physician: Dr. Perez
== END 2025-05-06 01:52 | disposition home or self-care (01) ==
LOC: SERX 01:50
PROVIDERS: Emergency Provider Emergency Medicine; PCP Family Medicine
DX: M25.541 Pain in joints of right hand (principal)
CPT/HCPCS: 99281; J1100; A9270